=== PATIENT | female | born 1960 | race African-American/Black ===

== ENCOUNTER 2021-05-16 01:15 | Inpatient (IN) | payer MEDICAID, OTHER ==
[~2021-05-16] VITALS: Ht 162.6 cm; Wt 54.4 kg
[2021-05-16] MEDS ORDERED: METHYLPREDNISOLONE SOD SUCC 125 MG/2 ML VIAL IV STA (02:21)
[2021-05-16] MEDS ORDERED: ALBUTEROL (0.083%) 2.5MG/3ML NEB HHN STA (02:21)
[2021-05-16] MEDS ORDERED: IPRATROPIUM BROMIDE (0.02%) 0.5MG/2.5ML NEB HHN STA (02:21)
[2021-05-16] MEDS ORDERED: SODIUM CHLORIDE 0.9% 1,000 ML IV ONE (02:30)
[2021-05-16 03:01] LABS: BASOPHILS % 0.3 % (0.0-2.0); EOSINOPHILS % 0.7 % (0.0-5.0); HEMATOCRIT. 40.9 % (36.0-48.0); HEMOGLOBIN. 13.2 g/dL (12.0-16.0); LYMPHOCYTES % 15.2 % (20.0-50.0); MEAN CORPUSCULAR HEMOGLOBIN 27.2 pg (28.0-32.0); MEAN CORPUSCULAR VOLUME 84.5 fL (81.0-99.0); MEAN PLATELET VOLUME 6.9 fl (7.4-10.4); NEUTROPHILS % 75.8 % (40.0-76.0); PLATELET 278 x1000/uL (130-400); RED BLOOD CELL COUNT 4.85 mill/uL (4.2-5.4); RED CELL DISTRIBUTION WIDTH 15.8 % (11.6-14.6)
[2021-05-16 03:10] LABS: CHLORIDE 112 mEq/L (98-107)
[2021-05-16 09:30] VITALS: BP 129/87
[2021-05-16] MEDS ORDERED: ONDANSETRON HCL 4MG/2ML INJ IV PRN (10:15)
[2021-05-16 11:00] VITALS: BP 129/87
[2021-05-16 12:00] VITALS: BP 161/87
[2021-05-16] MEDS: METHYLPREDNISOLONE SOD SUCC 40 MG/ML VIAL IV SCH ×3 (12:25→22:03)
[2021-05-16] MEDS: FUROSEMIDE 40MG/4ML VIAL IVP SCH (12:25)
[2021-05-16] MEDS: IPRATROPIUM/ALBUTEROL 0.5-3(2.5)MG/3ML NEB HHN SCH ×3 (13:39→21:04)
[2021-05-16] MEDS ORDERED: ACET650T37 PO (15:08)
[2021-05-16] MEDS ORDERED: HYDR-4001 PO (15:08)
[2021-05-16 16:00] VITALS: BP 141/72
[2021-05-16] MEDS ORDERED: INFLUENZA VACCINE 05/PF 0.5 ML SYRINGE IM ONE (18:00)
[2021-05-16 18:12] LABS: *AMPHETAMINES SCREEN URINE NEGATIVE (NEGATIVE); *BARBITURATES SCREEN URINE NEGATIVE (NEGATIVE); *BENZODIAZEPINES SCREEN URINE NEGATIVE (NEGATIVE); *COCAINE SCREEN URINE NEGATIVE (NEGATIVE); METHADONE URINE SCREEN NEGATIVE (NEGATIVE); OPIATES URINE SCREEN NEGATIVE (NEGATIVE)
[2021-05-16 18:13] LABS: CANNABINOID URINE SCREEN NEGATIVE (NEGATIVE); PHENCYCLIDINE URINE SCREEN NEGATIVE (NEGATIVE)
[2021-05-16] MEDS: ACETAMINOPHEN 325MG TABLET PO PRN (18:31)
[2021-05-16 20:00] VITALS: BP 144/84
[2021-05-16] MEDS: FAMOTIDINE 20MG TABLET PO SCH (20:33)
[2021-05-17] VITALS: BP 137/63
[2021-05-17] MEDS: IPRATROPIUM/ALBUTEROL 0.5-3(2.5)MG/3ML NEB HHN SCH ×6 (01:20→20:29)
[2021-05-17 04:00] VITALS: BP 123/69
[2021-05-17] MEDS: METHYLPREDNISOLONE SOD SUCC 40 MG/ML VIAL IV SCH ×3 (06:37→20:25)
[2021-05-17 07:58] VITALS: BP 127/77
[2021-05-17] MEDS: FUROSEMIDE 40MG/4ML VIAL IVP SCH (08:46)
[2021-05-17] MEDS: ACETAMINOPHEN 325MG TABLET PO PRN (08:46)
[2021-05-17 12:00] VITALS: BP 127/57
[2021-05-17] MEDS: HYDROCODONE/ACETAMINOPHEN 5/325MG TABLET PO PRN ×2 (13:17→18:20)
[2021-05-17 16:00] VITALS: BP 122/84
[2021-05-17 16:05] LABS: BG BASE EXCESS 1.3 mmol/L (-2.0-2.0); BG CARBOXYHEMOGLOBIN 0.7 % (0.5-1.5); BG DEOXYHEMOGLOBIN 7.1 % (0.0-5.0); BG FRACTION INSPIRED OXYGEN 21; BG METHEMOGLOBIN 0.4 % (0.0-1.5); BG OXYGEN SATURATION 92.8 % (92.0-98.5); BG OXYHEMOGLOBIN 91.8 % (94.0-97.0); BG PCO2 36.5 mmHg (35.0-45.0); BG PH 7.453 (7.350-7.450); BG PO2 63.5 mmHg (75.0-100.0); BG SAMPLE SITE LEFT BRACHIAL; BG TOTAL HEMOGLOBIN 14.2 g/dL (12.0-18.0); BG VENT MODE ROOM AIR
[2021-05-17] MEDS: FLUOXETINE HCL 10 MG CAPSULE PO SCH (18:18)
[2021-05-17 20:00] VITALS: BP 128/63
[2021-05-17] MEDS: FAMOTIDINE 20MG TABLET PO SCH (20:25)
[2021-05-17] MEDS: TRAZODONE HCL 50MG TABLET PO SCH (20:25)
[2021-05-17] MEDS: QUETIAPINE FUMARATE 50MG TABLET PO SCH (20:25)
[2021-05-18] VITALS: BP 104/50
[2021-05-18] MEDS: IPRATROPIUM/ALBUTEROL 0.5-3(2.5)MG/3ML NEB HHN SCH ×6 (01:13→20:46)
[2021-05-18 04:00] VITALS: BP 108/62
[2021-05-18] MEDS: METHYLPREDNISOLONE SOD SUCC 40 MG/ML VIAL IV SCH ×3 (05:40→21:57)
[2021-05-18 08:00] VITALS: BP 120/54
[2021-05-18] MEDS: FUROSEMIDE 40MG/4ML VIAL IVP SCH (08:30)
[2021-05-18] MEDS: FLUOXETINE HCL 10 MG CAPSULE PO SCH (08:30)
[2021-05-18] MEDS: HYDROCODONE/ACETAMINOPHEN 5/325MG TABLET PO PRN ×3 (08:31→20:13)
[2021-05-18] MEDS ORDERED: ALBU18HF2 IH (13:48)
[2021-05-18] MEDS ORDERED: FURO-152 MT (13:48)
[2021-05-18] MEDS ORDERED: FLUT1DIS3 INH (13:48)
[2021-05-18] MEDS ORDERED: IPRA3AMP9 NEB (13:48)
[2021-05-18] MEDS ORDERED: P20 MT (13:48)
[2021-05-18 16:00] VITALS: BP 117/66
[2021-05-18 20:00] VITALS: BP 112/56
[2021-05-18] MEDS: FAMOTIDINE 20MG TABLET PO SCH (21:57)
[2021-05-18] MEDS: TRAZODONE HCL 50MG TABLET PO SCH (21:57)
[2021-05-18] MEDS: QUETIAPINE FUMARATE 50MG TABLET PO SCH (21:57)
[2021-05-19] VITALS: BP 106/54
[2021-05-19 04:00] VITALS: BP 121/57
[2021-05-19] MEDS: METHYLPREDNISOLONE SOD SUCC 40 MG/ML VIAL IV SCH ×3 (05:12→20:59)
[2021-05-19 08:00] VITALS: BP 107/52
[2021-05-19] MEDS: IPRATROPIUM/ALBUTEROL 0.5-3(2.5)MG/3ML NEB HHN SCH ×3 (08:56→17:19)
[2021-05-19] MEDS: FUROSEMIDE 40MG/4ML VIAL IVP SCH (09:13)
[2021-05-19] MEDS: FLUOXETINE HCL 10 MG CAPSULE PO SCH (09:14)
[2021-05-19] MEDS: HYDROCODONE/ACETAMINOPHEN 5/325MG TABLET PO PRN ×3 (09:14→18:59)
[2021-05-19 12:00] VITALS: BP 117/49
[2021-05-19] MEDS ORDERED: QUET50TA PO (13:06)
[2021-05-19] MEDS ORDERED: TRAZ-251 PO (13:06)
[2021-05-19] MEDS ORDERED: FLUO10CA28 PO (13:06)
[2021-05-19 16:00] VITALS: BP 123/53
[2021-05-19 18:23] LABS: CHLORIDE 99 mEq/L (98-107)
[2021-05-19 20:00] VITALS: BP 114/72
[2021-05-19] MEDS: QUETIAPINE FUMARATE 50MG TABLET PO SCH (20:59)
[2021-05-19] MEDS: FAMOTIDINE 20MG TABLET PO SCH (21:00)
[2021-05-19] MEDS: TRAZODONE HCL 50MG TABLET PO SCH (21:00)
[2021-05-19] MEDS: DOXEPIN HCL 25MG CAPSULE PO SCH (21:00)
[2021-05-20 01:08] VITALS: BP 101/40
[2021-05-20 04:00] VITALS: BP 99/47
[2021-05-20] MEDS: METHYLPREDNISOLONE SOD SUCC 40 MG/ML VIAL IV SCH ×3 (06:41→21:05)
[2021-05-20 08:00] VITALS: BP 113/45
[2021-05-20] MEDS: HYDROCODONE/ACETAMINOPHEN 5/325MG TABLET PO PRN ×3 (08:46→21:07)
[2021-05-20] MEDS: FUROSEMIDE 40MG/4ML VIAL IVP SCH (08:46)
[2021-05-20] MEDS: FLUOXETINE HCL 10 MG CAPSULE PO SCH (08:46)
[2021-05-20] MEDS: IPRATROPIUM/ALBUTEROL 0.5-3(2.5)MG/3ML NEB HHN SCH ×3 (09:04→16:02)
[2021-05-20 12:00] VITALS: BP 109/67
[2021-05-20 16:00] VITALS: BP 133/59
[2021-05-20 20:00] VITALS: BP 102/62
[2021-05-20] MEDS: DOXEPIN HCL 25MG CAPSULE PO SCH (21:06)
[2021-05-20] MEDS: FAMOTIDINE 20MG TABLET PO SCH (21:06)
[2021-05-20] MEDS: QUETIAPINE FUMARATE 50MG TABLET PO SCH (21:06)
[2021-05-20] MEDS: TRAZODONE HCL 50MG TABLET PO SCH (21:06)
[2021-05-21 03:50] VITALS: BP 98/59
[2021-05-21] MEDS: METHYLPREDNISOLONE SOD SUCC 40 MG/ML VIAL IV SCH ×2 (05:13→14:19)
[2021-05-21] MEDS: HYDROCODONE/ACETAMINOPHEN 5/325MG TABLET PO PRN ×3 (05:14→14:19)
[2021-05-21 08:00] VITALS: BP 110/45
[2021-05-21] MEDS: IPRATROPIUM/ALBUTEROL 0.5-3(2.5)MG/3ML NEB HHN SCH ×2 (08:53→12:51)
[2021-05-21] MEDS: FLUOXETINE HCL 10 MG CAPSULE PO SCH (09:13)
[2021-05-21] MEDS: FUROSEMIDE 40MG/4ML VIAL IVP SCH (09:13)
[2021-05-21 12:00] VITALS: BP 123/72
[2021-05-21 12:32] VITALS: BP 123/72
[2021-05-21 14:19] VITALS: BP 124/64
== END 2021-05-21 15:10 | disposition home or self-care (01) | DRG 141 ==
LOC: EDBD 01:15 → ER 01:15 → MICUSO 04:53 → EDBEDREQ 05:00 → EDBEDREQTM 05:00 → 7EST 11:56
PROVIDERS: ADMIT Internal Medicine; ATTEND Internal Medicine
DX: J45.901 Unspecified asthma with (acute) exacerbation (principal); E44.0 Moderate protein-calorie malnutrition; E87.8 Other disorders of electrolyte and fluid balance, not elsewhere classified; I50.9 Heart failure, unspecified; F25.9 Schizoaffective disorder, unspecified; F31.9 Bipolar disorder, unspecified; F17.200 Nicotine dependence, unspecified, uncomplicated; F19.90 Other psychoactive substance use, unspecified, uncomplicated; R74.01 Elevation of levels of liver transaminase levels; Z20.822 Contact with and (suspected) exposure to COVID-19; F41.1 Generalized anxiety disorder; F43.10 Post-traumatic stress disorder, unspecified; Z59.00 Homelessness unspecified; Z82.49 Family history of ischemic heart disease and other diseases of the circulatory system; Z87.01 Personal history of pneumonia (recurrent); Z68.20 Body mass index [BMI] 20.0-20.9, adult; Z71.6 Tobacco abuse counseling
CPT/HCPCS: 36415; 36600; 71045; 80048; 80053; 80305; 82375; 82805; 83605; 83880; 84443; 84484; 85025; 87426; 90686; 93005; 93306; 94618; 94640; 99291; C1893; J1940; J2920; J2930; J7030; U0003; U0005

== ENCOUNTER 2021-09-08 17:48 | Emergency (ER) | payer MEDICAID, OTHER ==
[~2021-09-08] VITALS: Ht 162.6 cm; Wt 61.0 kg
[~2021-09-08 17:48] MED LIST: ACET650T37 PO; ALBU18HF2 IH; FLUO10CA28 PO; FLUT1DIS3 INH; FURO-152 MT; HYDR-4001 PO; IPRA3AMP9 NEB; P20 MT; QUET50TA PO; TRAZ-251 PO
[2021-09-08 20:15] LABS: CHLORIDE 107 mEq/L (98-107)
[2021-09-08 20:21] LABS: BASOPHILS % 0.9 % (0.0-2.0); EOSINOPHILS % 1.6 % (0.0-5.0); HEMOGLOBIN. 12.1 g/dL (12.0-16.0); LYMPHOCYTES % 18.6 % (20.0-50.0); MEAN CORPUSCULAR HEMOGLOBIN 24.4 pg (28.0-32.0); MEAN CORPUSCULAR VOLUME 76.7 fL (81.0-99.0); MEAN PLATELET VOLUME 7.2 fl (7.4-10.4); MONOCYTES % 11.2 % (2.0-8.0); NEUTROPHILS % 67.7 % (40.0-76.0); PLATELET 354 x1000/uL (130-400); RED BLOOD CELL COUNT 4.95 mill/uL (4.2-5.4); RED CELL DISTRIBUTION WIDTH 18.1 % (11.6-14.6)
[2021-09-08] MEDS ORDERED: FURO-151 PO (21:46)
[2021-09-08 22:00] VITALS: BP 120/72
[2021-09-08] MEDS ORDERED: FUROSEMIDE 40MG TABLET PO ONE (22:00)
[2021-09-09] MEDS ORDERED: POTA20TA82 MT (13:18)
[2021-09-09] MEDS ORDERED: FURO-151 MT (13:18)
== END 2021-09-08 22:18 | disposition home or self-care (01) ==
LOC: ER 17:48
DX: I50.9 Heart failure, unspecified (principal); Z20.822 Contact with and (suspected) exposure to COVID-19; R00.0 Tachycardia, unspecified; R74.8 Abnormal levels of other serum enzymes; J44.9 Chronic obstructive pulmonary disease, unspecified; J45.909 Unspecified asthma, uncomplicated; F20.9 Schizophrenia, unspecified; Z87.01 Personal history of pneumonia (recurrent)
CPT/HCPCS: 36415; 71045; 80048; 83880; 84484; 85025; 87426; 93005; 99285

== ENCOUNTER 2021-09-09 10:50 | Emergency (ER) | payer MEDICAID, OTHER ==
[~2021-09-09] VITALS: Ht 165.1 cm; Wt 63.0 kg
[~2021-09-09 10:50] MED LIST changes: +FURO-151 PO
[2021-09-09 11:28] LABS: BASOPHILS % 1.3 % (0.0-2.0); EOSINOPHILS % 0.7 % (0.0-5.0); HEMATOCRIT. 38.8 % (36.0-48.0); HEMOGLOBIN. 12.9 g/dL (12.0-16.0); LYMPHOCYTES % 18.5 % (20.0-50.0); MEAN CORPUSCULAR HEMOGLOBIN 25.2 pg (28.0-32.0); MEAN PLATELET VOLUME 6.8 fl (7.4-10.4); MONOCYTES % 9.2 % (2.0-8.0); NEUTROPHILS % 70.3 % (40.0-76.0); PLATELET 361 x1000/uL (130-400); RED BLOOD CELL COUNT 5.11 mill/uL (4.2-5.4); RED CELL DISTRIBUTION WIDTH 18.3 % (11.6-14.6)
[2021-09-09 11:35] LABS: CHLORIDE 105 mEq/L (98-107)
[2021-09-09] MEDS ORDERED: FUROSEMIDE 100MG/10ML VIAL IVP ONE (11:45)
[2021-09-09] MEDS ORDERED: ALBUTEROL (0.083%) 2.5MG/3ML NEB HHN ONE (11:45)
[2021-09-09] MEDS ORDERED: POTA20TA82 MT (13:18)
[2021-09-09] MEDS ORDERED: FURO-151 MT (13:18)
[2021-09-09] MEDS ORDERED: ACETAMINOPHEN 325MG TABLET PO ONE (13:30)
[2021-09-09 13:41] VITALS: BP 122/81
== END 2021-09-09 13:46 | disposition home or self-care (01) ==
LOC: ER 10:50
DX: I50.9 Heart failure, unspecified (principal); J44.9 Chronic obstructive pulmonary disease, unspecified; Z98.890 Other specified postprocedural states; F17.290 Nicotine dependence, other tobacco product, uncomplicated; Z79.899 Other long term (current) drug therapy
CPT/HCPCS: 36415; 71045; 80053; 83880; 84484; 85025; 93005; 94640; 96374; 99285; J1940; Z7610

== ENCOUNTER 2021-10-03 16:59 | Emergency (ER) | payer MEDICAID ==
[~2021-10-03] VITALS: Ht 170.2 cm; Wt 73.0 kg
[~2021-10-03 16:59] MED LIST changes: +FURO-151 MT; +POTA20TA82 MT
[2021-10-03] MEDS ORDERED: ALBUTEROL (0.083%) 2.5MG/3ML NEB HHN STA (17:10)
[2021-10-03] MEDS ORDERED: MAGNESIUM 2 G PREMIX 50 ML IV STA (17:10)
[2021-10-03] MEDS ORDERED: IPRATROPIUM BROMIDE (0.02%) 0.5MG/2.5ML NEB HHN STA (17:10)
[2021-10-03] MEDS ORDERED: METHYLPREDNISOLONE SOD SUCC 125 MG/2 ML VIAL IV STA (17:10)
[2021-10-03] MEDS ORDERED: FUROSEMIDE 20MG/2ML VIAL IVP ONE (17:15)
[2021-10-03 17:36] LABS: BASOPHILS % 1.6 % (0.0-2.0); EOSINOPHILS % 1.3 % (0.0-5.0); HEMATOCRIT. 38.1 % (36.0-48.0); HEMOGLOBIN. 12.1 g/dL (12.0-16.0); LYMPHOCYTES % 30.6 % (20.0-50.0); MEAN CORPUSCULAR HEMOGLOBIN 23.9 pg (28.0-32.0); MEAN CORPUSCULAR VOLUME 75.1 fL (81.0-99.0); MEAN PLATELET VOLUME 7.4 fl (7.4-10.4); MONOCYTES % 14.1 % (2.0-8.0); NEUTROPHILS % 52.4 % (40.0-76.0); PLATELET 302 x1000/uL (130-400); RED BLOOD CELL COUNT 5.08 mill/uL (4.2-5.4); RED CELL DISTRIBUTION WIDTH 18.6 % (11.6-14.6)
[2021-10-03 17:50] LABS: CHLORIDE 110 mEq/L (98-107)
[2021-10-03] MEDS ORDERED: ACETAMINOPHEN 325MG TABLET PO ONE (20:00)
[2021-10-03] MEDS ORDERED: POTASSIUM CHLORIDE 20MEQ TABLET SR PO ONE (20:00)
[2021-10-03 21:46] VITALS: BP 128/66
== END 2021-10-03 21:45 | disposition home or self-care (01) ==
LOC: ER 16:59
DX: I11.0 Hypertensive heart disease with heart failure (principal); I50.9 Heart failure, unspecified; J44.9 Chronic obstructive pulmonary disease, unspecified; E87.8 Other disorders of electrolyte and fluid balance, not elsewhere classified; J45.909 Unspecified asthma, uncomplicated
CPT/HCPCS: 36415; 71045; 80053; 83880; 84484; 85025; 93005; 96365; 96375; 99291; J1940; J2930; J3475

== ENCOUNTER 2021-10-07 07:06 | Inpatient (IN) | payer MEDICAID, OTHER ==
[~2021-10-07] VITALS: Ht 165.1 cm; Wt 61.7 kg
[2021-10-07] MEDS ORDERED: FUROSEMIDE 40MG/4ML VIAL IV ONE (07:30)
[2021-10-07] MEDS ORDERED: ASPIRIN 81MG TABLET PO ONE (07:30)
[2021-10-07 08:21] LABS: EOSINOPHILS % 1.9 % (0.0-5.0); HEMATOCRIT. 38.4 % (36.0-48.0); HEMOGLOBIN. 12.3 g/dL (12.0-16.0); LYMPHOCYTES % 15.1 % (20.0-50.0); MEAN PLATELET VOLUME 7.5 fl (7.4-10.4); MONOCYTES % 10.6 % (2.0-8.0); NEUTROPHILS % 71.4 % (40.0-76.0); PLATELET 290 x1000/uL (130-400); RED BLOOD CELL COUNT 5.11 mill/uL (4.2-5.4); RED CELL DISTRIBUTION WIDTH 18.4 % (11.6-14.6)
[2021-10-07 08:28] LABS: CHLORIDE 108 mEq/L (98-107)
[2021-10-07 08:33] LABS: ETHANOL BLOOD < 10 mg/dL
[2021-10-07 11:35] LABS: CANNABINOID URINE SCREEN NEGATIVE (NEGATIVE); METHADONE URINE SCREEN NEGATIVE (NEGATIVE); OPIATES URINE SCREEN NEGATIVE (NEGATIVE)
[2021-10-07 11:36] LABS: *BARBITURATES SCREEN URINE NEGATIVE (NEGATIVE); *COCAINE SCREEN URINE PRESUMTIVE POSITIVE (NEGATIVE); PHENCYCLIDINE URINE SCREEN NEGATIVE (NEGATIVE)
[2021-10-07 11:37] LABS: *AMPHETAMINES SCREEN URINE NEGATIVE (NEGATIVE)
[2021-10-07 11:44] LABS: *BENZODIAZEPINES SCREEN URINE NEGATIVE (NEGATIVE)
[2021-10-07] MEDS ORDERED: ACETAMINOPHEN 325MG TABLET PO PRN (20:15)
[2021-10-07] MEDS ORDERED: CLONIDINE 0.1MG TABLET PO PRN (20:15)
[2021-10-07] MEDS ORDERED: DOCUSATE SODIUM 100MG CAPSULE PO PRN (20:15)
[2021-10-07] MEDS ORDERED: MAGNESIUM/ALUMINUM HYDROXIDE/SIMETHICONE 30ML UDC PO PRN (20:15)
[2021-10-07] MEDS ORDERED: CEFTRIAXONE 1 G PREMIX 50 ML IV SCH (21:00)
[2021-10-08] MEDS: FUROSEMIDE 40MG/4ML VIAL IV SCH ×3 (00:57→16:42)
[2021-10-08] MEDS: ENOXAPARIN 40MG/0.4ML SYR SUBCUT SCH ×2 (00:57→23:00)
[2021-10-08] MEDS: CEFTRIAXONE 1,000 MG in DEXTROSE 5% WATER 50 ML IV SCH (00:58)
[2021-10-08 04:37] LABS: BASOPHILS % 0.6 % (0.0-2.0); EOSINOPHILS % 2.4 % (0.0-5.0); HEMATOCRIT. 37.5 % (36.0-48.0); HEMOGLOBIN. 12.2 g/dL (12.0-16.0); LYMPHOCYTES % 20.5 % (20.0-50.0); MEAN CORPUSCULAR VOLUME 74.1 fL (81.0-99.0); MEAN PLATELET VOLUME 7.4 fl (7.4-10.4); MONOCYTES % 9.8 % (2.0-8.0); NEUTROPHILS % 66.7 % (40.0-76.0); PLATELET 311 x1000/uL (130-400); RED BLOOD CELL COUNT 5.07 mill/uL (4.2-5.4); RED CELL DISTRIBUTION WIDTH 18.9 % (11.6-14.6)
[2021-10-08 04:50] LABS: CHLORIDE 107 mEq/L (98-107)
[2021-10-08 04:57] LABS: PHOSPHORUS 3.7 mg/dL (2.5-4.9)
[2021-10-08] MEDS: HYDROCODONE/ACETAMINOPHEN 5/325MG TABLET PO PRN ×4 (04:57→22:59)
[2021-10-08 04:58] LABS: LDL CHOLESTEROL 52 mg/dL (5-100)
[2021-10-08 04:59] LABS: HDL CHOLESTEROL 49 mg/dL (40-59); T4 FREE 1.42 ng/dL (0.76-1.46)
[2021-10-08 12:00] VITALS: BP 101/74
[2021-10-08] MEDS: OMEPRAZOLE 20MG CAPSULE EXTENDED RELEASE PO SCH (12:49)
[2021-10-08] MEDS ORDERED: NALOXONE HCL 0.4MG/ML VIAL IV PRN (15:00)
[2021-10-08 16:00] VITALS: BP 117/53
[2021-10-08 16:58] LABS: CREATINE KINASE MB FRACTION 2.1 ng/mL (0.5-3.6)
[2021-10-08 16:59] VITALS: BP 101/74
[2021-10-08 20:00] VITALS: BP 116/70
[2021-10-08] MEDS ORDERED: INFLUENZA VACCINE 05/PF 0.5 ML SYRINGE IM ONE (20:00)
[2021-10-08] MEDS ORDERED: MAGNESIUM 2 G PREMIX 50 ML IV NR (20:00)
[2021-10-08] MEDS: IPRATROPIUM/ALBUTEROL 0.5-3(2.5)MG/3ML NEB HHN SCH (22:23)
[2021-10-09] VITALS: BP 94/71
[2021-10-09] MEDS: CEFTRIAXONE 1,000 MG in DEXTROSE 5% WATER 50 ML IV SCH (01:00)
[2021-10-09] MEDS: IPRATROPIUM/ALBUTEROL 0.5-3(2.5)MG/3ML NEB HHN SCH ×4 (01:06→21:50)
[2021-10-09] MEDS ORDERED: FLUOXETINE HCL 10 MG CAPSULE PO SCH (05:45)
[2021-10-09 06:45] LABS: HEMATOCRIT. 39.2 % (36.0-48.0); HEMOGLOBIN. 12.6 g/dL (12.0-16.0); MEAN CORPUSCULAR HEMOGLOBIN 23.7 pg (28.0-32.0); MEAN CORPUSCULAR VOLUME 73.7 fL (81.0-99.0); MEAN PLATELET VOLUME 7.5 fl (7.4-10.4); PLATELET 321 x1000/uL (130-400); RED BLOOD CELL COUNT 5.32 mill/uL (4.2-5.4); RED CELL DISTRIBUTION WIDTH 18.6 % (11.6-14.6)
[2021-10-09 06:59] LABS: CHLORIDE 101 mEq/L (98-107)
[2021-10-09] MEDS: OMEPRAZOLE 20MG CAPSULE EXTENDED RELEASE PO SCH (07:55)
[2021-10-09 08:00] VITALS: BP 100/68
[2021-10-09] MEDS: FUROSEMIDE 40MG/4ML VIAL IV SCH ×2 (09:43→17:25)
[2021-10-09] MEDS: QUETIAPINE FUMARATE 50MG TABLET PO SCH ×2 (09:43→21:42)
[2021-10-09 10:42] LABS: PLATELET ESTIMATE NORMAL
[2021-10-09 12:00] VITALS: BP 104/70
[2021-10-09] MEDS: HYDROCODONE/ACETAMINOPHEN 5/325MG TABLET PO PRN ×3 (13:36→21:41)
[2021-10-09 16:00] VITALS: BP 124/67
[2021-10-09 20:00] VITALS: BP 105/54
[2021-10-09] MEDS ORDERED: TRAZODONE HCL 50MG TABLET PO SCH (21:00)
[2021-10-09] MEDS: ENOXAPARIN 40MG/0.4ML SYR SUBCUT SCH (21:42)
[2021-10-10] VITALS (7 sets, daily range): BP systolic 94–104; BP diastolic 43–61
[2021-10-10] MEDS: CEFTRIAXONE 1,000 MG in DEXTROSE 5% WATER 50 ML IV SCH (00:14)
[2021-10-10] MEDS: IPRATROPIUM/ALBUTEROL 0.5-3(2.5)MG/3ML NEB HHN SCH ×3 (02:30→13:05)
[2021-10-10] MEDS: OMEPRAZOLE 20MG CAPSULE EXTENDED RELEASE PO SCH (06:21)
[2021-10-10] MEDS: HYDROCODONE/ACETAMINOPHEN 5/325MG TABLET PO PRN ×2 (09:43→16:01)
[2021-10-10] MEDS ORDERED: MAGNESIUM 2 G PREMIX 50 ML IV SCH (10:45)
[2021-10-10] MEDS: QUETIAPINE FUMARATE 50MG TABLET PO SCH (10:57)
[2021-10-11] MEDS ORDERED: FAMOTIDINE 20MG TABLET PO SCH (07:20)
[2021-10-11] MEDS ORDERED: FUROSEMIDE 40MG TABLET PO SCH (09:00)
== END 2021-10-10 19:45 | disposition home health service (06) | DRG 816 ==
LOC: ER 07:16 → MICUSO 10:26 → 6WST 10-08 10:54
PROVIDERS: ADMIT Internal Medicine; ATTEND Internal Medicine
DX: T59.91XA Toxic effect of unspecified gases, fumes and vapors, accidental (unintentional), initial encounter (principal); J96.90 Respiratory failure, unspecified, unspecified whether with hypoxia or hypercapnia; I50.43 Acute on chronic combined systolic (congestive) and diastolic (congestive) heart failure; J68.0 Bronchitis and pneumonitis due to chemicals, gases, fumes and vapors; I42.0 Dilated cardiomyopathy; I27.20 Pulmonary hypertension, unspecified; I11.0 Hypertensive heart disease with heart failure; F41.9 Anxiety disorder, unspecified; F31.9 Bipolar disorder, unspecified; F20.9 Schizophrenia, unspecified; F14.10 Cocaine abuse, uncomplicated; I35.1 Nonrheumatic aortic (valve) insufficiency; Z82.49 Family history of ischemic heart disease and other diseases of the circulatory system; Z72.0 Tobacco use; Y92.89 Other specified places as the place of occurrence of the external cause; I95.2 Hypotension due to drugs
CPT/HCPCS: 36415; 71045; 80048; 80053; 80061; 80076; 80305; 80320; 82553; 83735; 83880; 84100; 84439; 84443; 84484; 85025; 87426; 90686; 93005; 93306; 93970; 94640; 99285; J0696; J1650; J1940; J3475; J7060; G0480

== ENCOUNTER 2022-03-05 08:20 | Emergency (ER) | payer MEDICAID ==
[~2022-03-05] VITALS: Ht 162.6 cm; Wt 59.0 kg
[~2022-03-05 08:20] MED LIST changes: +ACET-3163 PO; -ACET650T37 PO; -FURO-151 MT; -FURO-152 MT; -P20 MT; +POTA-205 MT; -POTA20TA82 MT
[2022-03-05] MEDS ORDERED: HYDR99LO MT (08:54)
[2022-03-05] MEDS ORDERED: DIPH103G TP (09:46)
[2022-03-05 09:48] VITALS: BP 122/58
== END 2022-03-05 09:54 | disposition home or self-care (01) ==
LOC: ER 08:28
DX: L50.9 Urticaria, unspecified (principal); E11.9 Type 2 diabetes mellitus without complications; J44.1 Chronic obstructive pulmonary disease with (acute) exacerbation; I11.0 Hypertensive heart disease with heart failure; I50.9 Heart failure, unspecified; Z79.899 Other long term (current) drug therapy
CPT/HCPCS: 93005; 99283

== ENCOUNTER 2022-03-11 00:08 | Inpatient (IN) | payer MEDICAID, OTHER ==
[~2022-03-11] VITALS: Ht 157.5 cm; Wt 26.3 kg
[~2022-03-11 00:08] MED LIST changes: +DIPH103G TP; +HYDR99LO MT
[2022-03-11 01:56] LABS: HEMATOCRIT. 39.9 % (36.0-48.0); MEAN CORPUSCULAR HEMOGLOBIN 25.5 pg (28.0-32.0); MEAN CORPUSCULAR VOLUME 78.2 fL (81.0-99.0); MEAN PLATELET VOLUME 6.5 fl (7.4-10.4); PLATELET 293 x1000/uL (130-400); RED CELL DISTRIBUTION WIDTH 24.8 % (11.6-14.6)
[2022-03-11] MEDS ORDERED: ASPIRIN 81MG EC TABLET PO ONE (02:00)
[2022-03-11] MEDS ORDERED: NITROGLYCERIN 0.4MG TABLET SL SL ONE (02:00)
[2022-03-11 02:01] LABS: CHLORIDE 106 mEq/L (98-107)
[2022-03-11 03:23] LABS: PLATELET ESTIMATE NORMAL
[2022-03-11] MEDS ORDERED: FAMOTIDINE 20MG/2ML VIAL IV ONE (04:00)
[2022-03-11] MEDS: FUROSEMIDE 40MG/4ML VIAL IVP SCH ×2 (07:57→19:23)
[2022-03-11] MEDS: IPRATROPIUM/ALBUTEROL 0.5-3(2.5)MG/3ML NEB HHN SCH ×3 (08:25→22:00)
[2022-03-11] MEDS ORDERED: ONDANSETRON HCL 4MG/2ML INJ IV PRN (10:30)
[2022-03-11 12:25] VITALS: BP 126/90
[2022-03-11 12:29] VITALS: BP 126/90
[2022-03-11] MEDS: NYSTATIN/TRIAMCIN OINT 15GM TOP SCH ×2 (14:00→19:25)
[2022-03-11] MEDS ORDERED: HYDROXYZINE 25MG TABLET PO PRN (15:00)
[2022-03-11 16:00] VITALS: BP 128/89
[2022-03-11] MEDS: CARVEDILOL 12.5MG TABLET PO SCH (21:00)
[2022-03-11] MEDS: FLUOCINONIDE 0.05% OINT 15GM TOP SCH ×2 (21:00→22:41)
[2022-03-12] MEDS: IPRATROPIUM/ALBUTEROL 0.5-3(2.5)MG/3ML NEB HHN SCH ×4 (01:02→11:58)
[2022-03-12 04:00] VITALS: BP 115/66
[2022-03-12] MEDS: FUROSEMIDE 40MG/4ML VIAL IVP SCH (06:32)
[2022-03-12] MEDS ORDERED: DIPHENHYDRAMINE 50MG CAPSULE PO PRN (08:15)
[2022-03-12] MEDS ORDERED: NALOXONE HCL 0.4MG/ML VIAL IV PRN (08:15)
[2022-03-12] MEDS ORDERED: HYDROCODONE/ACETAMINOPHEN 10/325MG TABLET PO PRN (08:15)
[2022-03-12 08:31] VITALS: BP 117/71
[2022-03-12] MEDS: FLUOCINONIDE 0.05% OINT 15GM TOP SCH (08:31)
[2022-03-12] MEDS: NYSTATIN/TRIAMCIN OINT 15GM TOP SCH ×2 (08:31→13:46)
[2022-03-12] MEDS: CARVEDILOL 12.5MG TABLET PO SCH (08:33)
[2022-03-12] MEDS ORDERED: ASPIRIN 81MG TABLET PO SCH (09:00)
[2022-03-12] MEDS ORDERED: [UNRECOGNIZED DRUG - CODE] TOP (11:44)
[2022-03-12] MEDS ORDERED: FURO-151 PO (11:44)
[2022-03-12] MEDS ORDERED: CARV6.2548 MT (11:44)
[2022-03-12 12:00] VITALS: BP 90/53
[2022-03-12 13:02] VITALS: BP 90/63
[2022-03-12] MEDS ORDERED: CARVEDILOL 6.25 MG TABLET PO SCH (21:00)
[2022-03-13] MEDS ORDERED: FUROSEMIDE 40MG TABLET PO SCH (09:00)
== END 2022-03-12 15:55 | disposition home or self-care (01) | DRG 194 ==
LOC: ER 00:08 → 6WST 05:07 → EDBEDREQTM 05:09 → EDBEDREQ 05:09 → ENRESERV 09:50
PROVIDERS: ADMIT Internal Medicine; ATTEND Internal Medicine
DX: I11.0 Hypertensive heart disease with heart failure (principal); I27.20 Pulmonary hypertension, unspecified; I42.9 Cardiomyopathy, unspecified; I50.23 Acute on chronic systolic (congestive) heart failure; E11.9 Type 2 diabetes mellitus without complications; J44.9 Chronic obstructive pulmonary disease, unspecified; F17.210 Nicotine dependence, cigarettes, uncomplicated; F14.90 Cocaine use, unspecified, uncomplicated; Z79.899 Other long term (current) drug therapy; Z91.19 Patient's noncompliance with other medical treatment and regimen; R07.89 Other chest pain
CPT/HCPCS: 36415; 71045; 80053; 83880; 84484; 85025; 93005; 93306; 94640; 99285; J1940; J3490

== ENCOUNTER 2022-03-13 10:34 | Inpatient (IN) | payer OTHER ==
[~2022-03-13] VITALS: Ht 160 cm; Wt 68.1 kg
[~2022-03-13 10:34] MED LIST changes: +CARV6.2548 MT; -DIPH103G TP; -HYDR99LO MT; +[UNRECOGNIZED DRUG - CODE] TOP
[2022-03-13] MEDS ORDERED: ALBUTEROL (0.083%) 2.5MG/3ML NEB HHN STA (10:38)
[2022-03-13] MEDS ORDERED: METHYLPREDNISOLONE SOD SUCC 125 MG/2 ML VIAL IV STA (10:38)
[2022-03-13] MEDS ORDERED: IPRATROPIUM BROMIDE (0.02%) 0.5MG/2.5ML NEB HHN STA (10:38)
[2022-03-13] MEDS ORDERED: ONDANSETRON HCL 4MG/2ML INJ IV STA (10:57)
[2022-03-13 11:30] LABS: BASOPHILS % 0.5 % (0.0-2.0); EOSINOPHILS % 0.2 % (0.0-5.0); HEMATOCRIT. 41.5 % (36.0-48.0); HEMOGLOBIN. 13.3 g/dL (12.0-16.0); LYMPHOCYTES % 15.5 % (20.0-50.0); MEAN CORPUSCULAR HEMOGLOBIN 25.3 pg (28.0-32.0); MEAN CORPUSCULAR VOLUME 79.1 fL (81.0-99.0); MEAN PLATELET VOLUME 6.9 fl (7.4-10.4); MONOCYTES % 14.3 % (2.0-8.0); NEUTROPHILS % 69.5 % (40.0-76.0); PLATELET 277 x1000/uL (130-400); RED BLOOD CELL COUNT 5.24 mill/uL (4.2-5.4); RED CELL DISTRIBUTION WIDTH 24.4 % (11.6-14.6)
[2022-03-13 11:40] LABS: CHLORIDE 104 mEq/L (98-107)
[2022-03-13 12:57] LABS: PLATELET ESTIMATE NORMAL
[2022-03-13] MEDS ORDERED: ALBUTEROL (0.083%) 2.5MG/3ML NEB HHN PRN (19:30)
[2022-03-13 22:55] VITALS: BP 122/77
[2022-03-14] VITALS: BP 122/77
[2022-03-14] MEDS ORDERED: HYDROCODONE/ACETAMINOPHEN 10/325MG TABLET PO PRN (01:00)
[2022-03-14] MEDS ORDERED: ACETAMINOPHEN 325MG TABLET PO PRN (01:00)
[2022-03-14] MEDS ORDERED: FLUTICASONE/VILANTEROL 200-25 BLST.W.DEV ORI SCH (04:00)
[2022-03-14] MEDS ORDERED: BUDESONIDE 0.5MG/2ML NEB HHN SCH (06:00)
[2022-03-14] MEDS ORDERED: ALBUTEROL (0.083%) 2.5MG/3ML NEB HHN SCH (06:00)
[2022-03-14] MEDS ORDERED: ENOXAPARIN 40MG/0.4ML SYR SUBCUT SCH (09:00)
[2022-03-14] MEDS ORDERED: FUROSEMIDE 40MG/4ML VIAL IVP SCH (09:00)
[2022-03-14] MEDS ORDERED: CARVEDILOL 3.125 MG TABLET PO SCH (09:00)
[2022-03-14] MEDS ORDERED: ASPIRIN 81MG TABLET PO SCH (09:00)
[2022-03-14 11:40] LABS: BASOPHILS % 0.2 % (0.0-2.0); HEMATOCRIT. 39.3 % (36.0-48.0); HEMOGLOBIN. 12.8 g/dL (12.0-16.0); LYMPHOCYTES % 12.3 % (20.0-50.0); MEAN CORPUSCULAR HEMOGLOBIN 25.4 pg (28.0-32.0); MEAN CORPUSCULAR VOLUME 78.2 fL (81.0-99.0); MEAN PLATELET VOLUME 7.5 fl (7.4-10.4); MONOCYTES % 10.2 % (2.0-8.0); NEUTROPHILS % 77.3 % (40.0-76.0); PLATELET 297 x1000/uL (130-400); RED BLOOD CELL COUNT 5.03 mill/uL (4.2-5.4)
[2022-03-14] MEDS: IPRATROPIUM/ALBUTEROL 0.5-3(2.5)MG/3ML NEB HHN SCH ×2 (12:21→16:15)
[2022-03-14 12:30] VITALS: BP 120/75
[2022-03-14 12:31] LABS: CHLORIDE 100 mEq/L (98-107)
[2022-03-14] MEDS ORDERED: DIPHENHYDRAMINE 25MG CAPSULE PO PRN (14:45)
[2022-03-14 16:18] VITALS: BP 112/69
[2022-03-14 17:10] VITALS: BP 112/69
== END 2022-03-14 19:03 | disposition home or self-care (01) | DRG 194 ==
LOC: ER 10:34 → MICUSO 13:15 → EDBEDREQTM 13:16 → EDBEDREQ 13:16 → 6WST 23:00
PROVIDERS: ADMIT Internal Medicine; ATTEND Internal Medicine
DX: I11.0 Hypertensive heart disease with heart failure (principal); Z99.81 Dependence on supplemental oxygen; E11.9 Type 2 diabetes mellitus without complications; R06.02 Shortness of breath; J44.9 Chronic obstructive pulmonary disease, unspecified; I50.23 Acute on chronic systolic (congestive) heart failure; F14.90 Cocaine use, unspecified, uncomplicated
CPT/HCPCS: 36415; 71045; 80053; 83880; 84484; 85025; 93005; 94640; 94644; 99285; J1650; J1940; J2405; J2930; J7626; Q0163

== ENCOUNTER 2022-03-21 16:33 | Emergency (ER) | payer OTHER ==
[~2022-03-21] VITALS: Ht 157.5 cm; Wt 60.0 kg
[2022-03-21] MEDS ORDERED: MAGNESIUM/ALUMINUM HYDROXIDE/SIMETHICONE 30ML UDC PO STA ×2 (18:21)
[2022-03-21] MEDS ORDERED: ONDANSETRON 4MG ODT PO STA (18:21)
[2022-03-21] MEDS ORDERED: VISCOUS LIDOCAINE 2% 15 ML UDC PO STA (18:21)
[2022-03-21 19:31] LABS: BASOPHILS % 0.5 % (0.0-2.0); EOSINOPHILS % 1.6 % (0.0-5.0); HEMATOCRIT. 42.6 % (36.0-48.0); HEMOGLOBIN. 13.5 g/dL (12.0-16.0); LYMPHOCYTES % 16.7 % (20.0-50.0); MEAN CORPUSCULAR HEMOGLOBIN 24.9 pg (28.0-32.0); MEAN CORPUSCULAR VOLUME 78.2 fL (81.0-99.0); MEAN PLATELET VOLUME 6.5 fl (7.4-10.4); MONOCYTES % 10.4 % (2.0-8.0); NEUTROPHILS % 70.8 % (40.0-76.0); PLATELET 293 x1000/uL (130-400); RED BLOOD CELL COUNT 5.45 mill/uL (4.2-5.4); RED CELL DISTRIBUTION WIDTH 23.1 % (11.6-14.6)
[2022-03-21 19:40] LABS: CHLORIDE 106 mEq/L (98-107)
[2022-03-21 19:43] LABS: INR 1.1
[2022-03-21 20:23] LABS: PLATELET ESTIMATE NORMAL
[2022-03-21] MEDS ORDERED: ACETAMINOPHEN 325MG TABLET PO ONE (21:15)
[2022-03-21 23:12] VITALS: BP 114/78
== END 2022-03-21 23:13 | disposition home or self-care (01) ==
LOC: ER 16:33
DX: K31.84 Gastroparesis (principal)
CPT/HCPCS: 36415; 74176; 80053; 83690; 85025; 85610; 93005; 99285; Q0162

== ENCOUNTER 2022-03-22 06:06 | Inpatient (IN) | payer OTHER ==
[~2022-03-22] VITALS: Ht 170.2 cm; Wt 71.7 kg
[2022-03-22 06:38] LABS: EOSINOPHILS % 1.5 % (0.0-5.0); HEMATOCRIT. 43.4 % (36.0-48.0); LYMPHOCYTES % 16.8 % (20.0-50.0); MEAN CORPUSCULAR HEMOGLOBIN 25.3 pg (28.0-32.0); MEAN CORPUSCULAR VOLUME 78.6 fL (81.0-99.0); MEAN PLATELET VOLUME 6.8 fl (7.4-10.4); MONOCYTES % 12.3 % (2.0-8.0); NEUTROPHILS % 69.1 % (40.0-76.0); PLATELET 276 x1000/uL (130-400); RED BLOOD CELL COUNT 5.52 mill/uL (4.2-5.4); RED CELL DISTRIBUTION WIDTH 22.7 % (11.6-14.6)
[2022-03-22 06:42] LABS: CHLORIDE 103 mEq/L (98-107)
[2022-03-22 07:13] LABS: BASOPHILS % 0.3 % (0.0-2.0)
[2022-03-22] MEDS ORDERED: KETOROLAC 30MG/ML VIAL IV ONE (07:15)
[2022-03-22 12:00] VITALS: BP 108/63
[2022-03-22] MEDS ORDERED: ACETAMINOPHEN 325MG TABLET PO PRN (12:15)
[2022-03-22] MEDS ORDERED: ONDANSETRON HCL 4MG/2ML INJ IV PRN (12:15)
[2022-03-22] MEDS: FUROSEMIDE 40MG/4ML VIAL IVP SCH ×3 (12:58→18:35)
[2022-03-22 16:00] VITALS: BP 107/55
[2022-03-22] MEDS: KETOROLAC 15MG/ML VIAL IV PRN (18:38)
[2022-03-22 20:00] VITALS: BP 100/81
[2022-03-22] MEDS ORDERED: NALOXONE HCL 0.4MG/ML VIAL IV PRN (20:00)
[2022-03-22] MEDS: HYDROCODONE/ACETAMINOPHEN 10/325MG TABLET PO PRN (20:20)
[2022-03-23] VITALS: BP 109/66
[2022-03-23] MEDS: HYDROCODONE/ACETAMINOPHEN 10/325MG TABLET PO PRN ×3 (00:37→21:31)
[2022-03-23 04:00] VITALS: BP 100/77
[2022-03-23 08:00] VITALS: BP 111/58
[2022-03-23] MEDS ORDERED: IPRATROPIUM/ALBUTEROL 0.5-3(2.5)MG/3ML NEB HHN PRN (08:45)
[2022-03-23] MEDS: CARVEDILOL 3.125 MG TABLET PO SCH ×2 (09:00→20:35)
[2022-03-23 11:41] VITALS: BP 108/77
[2022-03-23 15:38] VITALS: BP 106/64
[2022-03-23] MEDS: FUROSEMIDE 40MG/4ML VIAL IVP SCH (16:05)
[2022-03-23 17:42] LABS: BG BASE EXCESS 4.1 mmol/L (-2.0-2.0); BG CARBOXYHEMOGLOBIN 0.5 % (0.5-1.5); BG DEOXYHEMOGLOBIN 4.2 % (0.0-5.0); BG FRACTION INSPIRED OXYGEN 21; BG HCO3 ACT 28.4 mmol/L (22.0-26.0); BG METHEMOGLOBIN 0.3 % (0.0-1.5); BG OXYGEN SATURATION 95.8 % (92.0-98.5); BG PCO2 41.6 mmHg (35.0-45.0); BG PH 7.452 (7.350-7.450); BG PO2 81.9 mmHg (75.0-100.0); BG SAMPLE SITE RIGHT BRACHIAL; BG TOTAL HEMOGLOBIN 13.7 g/dL (12.0-18.0); BG VENT MODE ROOM AIR
[2022-03-23 20:00] VITALS: BP 101/66
[2022-03-23] MEDS: KETOROLAC 15MG/ML VIAL IV PRN (20:35)
[2022-03-24] VITALS: BP 100/77
[2022-03-24] MEDS ORDERED: DIPHENHYDRAMINE 25MG CAPSULE PO PRN (00:45)
[2022-03-24 04:00] VITALS: BP 97/48
[2022-03-24] MEDS: HYDROCODONE/ACETAMINOPHEN 10/325MG TABLET PO PRN (04:07)
[2022-03-24] MEDS: KETOROLAC 15MG/ML VIAL IV PRN (06:02)
[2022-03-24 08:00] VITALS: BP 125/53
[2022-03-24] MEDS: FUROSEMIDE 40MG/4ML VIAL IVP SCH (08:25)
[2022-03-24] MEDS: CARVEDILOL 3.125 MG TABLET PO SCH (08:25)
[2022-03-24 09:17] VITALS: BP 125/53
[2022-03-24 11:56] VITALS: BP_SYST 102; BP_SYST 97; BP_DIAS 40; BP_DIAS 54
== END 2022-03-24 14:00 | disposition home or self-care (01) | DRG 816 ==
LOC: ER 06:06 → 8WST 07:54 → EDBEDREQSVC 07:58 → EDBEDREQ 07:58 → EDBEDREQTM 07:58 → ENRESERV 08:56 → CANRESERV 09:14 → ENRESERV 09:14
PROVIDERS: ADMIT Internal Medicine; ATTEND Internal Medicine
DX: T40.5X1A Poisoning by cocaine, accidental (unintentional), initial encounter (principal); I50.23 Acute on chronic systolic (congestive) heart failure; I42.9 Cardiomyopathy, unspecified; I95.9 Hypotension, unspecified; K31.84 Gastroparesis; E11.43 Type 2 diabetes mellitus with diabetic autonomic (poly)neuropathy; I11.0 Hypertensive heart disease with heart failure; J70.4 Drug-induced interstitial lung disorders, unspecified; F14.90 Cocaine use, unspecified, uncomplicated; F17.210 Nicotine dependence, cigarettes, uncomplicated
CPT/HCPCS: 36415; 36600; 71045; 80053; 82375; 82805; 83605; 83880; 84484; 85025; 93005; 93970; 99285; J1885; J1940; Q0163

== ENCOUNTER 2022-03-29 01:25 | Emergency (ER) | payer MEDICAID, OTHER ==
[~2022-03-29] VITALS: Ht 157.5 cm; Wt 61.0 kg
[2022-03-29] MEDS ORDERED: ONDANSETRON HCL 4MG/2ML INJ IV ONE (03:00)
[2022-03-29] MEDS ORDERED: KETOROLAC 15MG/ML VIAL IV ONE (03:00)
[2022-03-29 03:19] LABS: HEMATOCRIT. 36.6 % (36.0-48.0); HEMOGLOBIN. 11.5 g/dL (12.0-16.0); MEAN CORPUSCULAR HEMOGLOBIN 24.9 pg (28.0-32.0); MEAN CORPUSCULAR VOLUME 79.1 fL (81.0-99.0); MEAN PLATELET VOLUME 8.7 fl (7.4-10.4); PLATELET 224 x1000/uL (130-400); RED BLOOD CELL COUNT 4.63 mill/uL (4.2-5.4); RED CELL DISTRIBUTION WIDTH 21.8 % (11.6-14.6)
[2022-03-29 03:31] LABS: CHLORIDE 108 mEq/L (98-107)
[2022-03-29 03:37] VITALS: BP 103/50
[2022-03-29 03:41] LABS: ETHANOL BLOOD < 10 mg/dL
[2022-03-29] MEDS ORDERED: FUROSEMIDE 40MG/4ML VIAL IVP ONE (04:00)
[2022-03-29 05:07] LABS: ATYPICAL LYMPHOCYTES 1; PLATELET ESTIMATE NORMAL
[2022-03-29] MEDS ORDERED: PROT20 MT (05:10)
[2022-03-29] MEDS ORDERED: METO5TAB86 MT (05:10)
== END 2022-03-29 05:45 | disposition home or self-care (01) ==
LOC: ER 02:20
DX: E11.43 Type 2 diabetes mellitus with diabetic autonomic (poly)neuropathy (principal); K31.84 Gastroparesis; J44.1 Chronic obstructive pulmonary disease with (acute) exacerbation; I11.0 Hypertensive heart disease with heart failure; I50.9 Heart failure, unspecified; Z98.890 Other specified postprocedural states; Z79.899 Other long term (current) drug therapy
CPT/HCPCS: 36415; 71045; 80053; 80320; 83605; 83690; 84484; 85025; 93005; 96374; 96375; 99285; J1885; J2405; J1940; G0480

== ENCOUNTER 2022-04-24 04:06 | Inpatient (IN) | payer MEDICAID ==
[~2022-04-24] VITALS: Ht 157.5 cm; Wt 62.6 kg
[~2022-04-24 04:06] MED LIST changes: +METO5TAB86 MT; +PROT20 MT
[2022-04-24] MEDS ORDERED: ALBUTEROL (0.083%) 2.5MG/3ML NEB HHN ONE (04:45)
[2022-04-24] MEDS ORDERED: IPRATROPIUM BROMIDE (0.02%) 0.5MG/2.5ML NEB HHN ONE (04:45)
[2022-04-24] MEDS ORDERED: FUROSEMIDE 40MG/4ML VIAL IVP ONE (04:45)
[2022-04-24] MEDS ORDERED: PREDNISONE 20MG TABLET PO ONE (04:45)
[2022-04-24 04:55] LABS: HEMATOCRIT. 41.4 % (36.0-48.0); HEMOGLOBIN. 13.4 g/dL (12.0-16.0); MEAN CORPUSCULAR HEMOGLOBIN 25.2 pg (28.0-32.0); MEAN CORPUSCULAR VOLUME 77.7 fL (81.0-99.0); MEAN PLATELET VOLUME 6.6 fl (7.4-10.4); PLATELET 263 x1000/uL (130-400); RED BLOOD CELL COUNT 5.33 mill/uL (4.2-5.4); RED CELL DISTRIBUTION WIDTH 21.8 % (11.6-14.6)
[2022-04-24 05:02] LABS: CHLORIDE 105 mEq/L (98-107)
[2022-04-24 05:37] LABS: PLATELET ESTIMATE NORMAL
[2022-04-24] MEDS ORDERED: POTASSIUM CHLORIDE 20MEQ TABLET SR PO NR (07:45)
[2022-04-24 08:40] VITALS: BP 118/69
[2022-04-24] MEDS ORDERED: ONDANSETRON HCL 4MG/2ML INJ IV PRN (10:30)
[2022-04-24] MEDS ORDERED: ACETAMINOPHEN 325MG TABLET PO PRN (10:30)
[2022-04-24] MEDS ORDERED: ALBUTEROL 6.7GM HFA INHALER ORI PRN (10:30)
[2022-04-24] MEDS: FUROSEMIDE 40MG/4ML VIAL IVP SCH ×2 (11:18→17:11)
[2022-04-24] MEDS ORDERED: KETOROLAC 15MG/ML VIAL IV PRN (12:30)
[2022-04-24 16:00] VITALS: BP 107/73
[2022-04-24] MEDS: HYDROCODONE/ACETAMINOPHEN 5/325MG TABLET PO PRN (17:11)
[2022-04-24] MEDS ORDERED: NALOXONE HCL 0.4MG/ML VIAL IV PRN (17:15)
[2022-04-24] MEDS ORDERED: METF-414 PO (17:32)
[2022-04-24 20:00] VITALS: BP 131/54
[2022-04-25] VITALS: BP 127/70
[2022-04-25] MEDS: HYDROCODONE/ACETAMINOPHEN 5/325MG TABLET PO PRN ×3 (01:10→13:23)
[2022-04-25 04:00] VITALS: BP 131/65
[2022-04-25 08:00] VITALS: BP 151/61
[2022-04-25] MEDS ORDERED: DEXAMETHASONE 6MG TABLET PO SCH (09:00)
[2022-04-25] MEDS ORDERED: POTASSIUM CHLORIDE 20MEQ TABLET SR PO SCH (09:00)
[2022-04-25] MEDS: FUROSEMIDE 40MG TABLET PO SCH ×2 (09:04→17:15)
[2022-04-25 12:00] VITALS: BP 106/44
[2022-04-25] MEDS ORDERED: FURO-151 PO ×2 (13:45)
[2022-04-25] MEDS ORDERED: CARV6.2548 MT ×2 (13:45)
[2022-04-25] MEDS ORDERED: FLUT1DIS3 INH ×2 (13:45)
[2022-04-25] MEDS ORDERED: ALBU18HF2 IH ×2 (13:45)
[2022-04-25 17:11] VITALS: BP 106/44
== END 2022-04-25 18:15 | disposition home or self-care (01) | DRG 140 ==
LOC: ER 04:06 → 7WST 06:04 → 7EST 04-25 12:39
PROVIDERS: ADMIT Internal Medicine; ATTEND Internal Medicine
DX: J44.1 Chronic obstructive pulmonary disease with (acute) exacerbation (principal); U07.1 COVID-19; I50.23 Acute on chronic systolic (congestive) heart failure; E44.0 Moderate protein-calorie malnutrition; J68.0 Bronchitis and pneumonitis due to chemicals, gases, fumes and vapors; I11.0 Hypertensive heart disease with heart failure; I42.9 Cardiomyopathy, unspecified; E11.9 Type 2 diabetes mellitus without complications; F17.210 Nicotine dependence, cigarettes, uncomplicated; E87.6 Hypokalemia; F14.90 Cocaine use, unspecified, uncomplicated
CPT/HCPCS: 36415; 71045; 80053; 83880; 84484; 85025; 87426; 93005; 94640; 94664; 99291; C9803; J1885; J1940; J7512

== ENCOUNTER 2022-05-12 12:32 | Emergency (ER) | payer MEDICAID ==
[~2022-05-12] VITALS: Ht 165.1 cm; Wt 59.0 kg
[~2022-05-12 12:32] MED LIST changes: -ALBU18HF2 IH; -CARV6.2548 MT; -FLUT1DIS3 INH; -FURO-151 PO; +METF-414 PO
[2022-05-12 12:35] VITALS: BP 129/75
[2022-05-12] MEDS ORDERED: ACETAMINOPHEN 325MG TABLET PO ONE (13:15)
[2022-05-12] MEDS ORDERED: ACETAMINOPHEN 500MG TABLET PO SCH (13:30)
[2022-05-12] MEDS ORDERED: DIPHENHYDRAMINE 50MG CAPSULE PO ONE (13:45)
[2022-05-12] MEDS ORDERED: HYDR-4233 RC (14:12)
== END 2022-05-12 14:32 | disposition home or self-care (01) ==
LOC: ER 13:08
DX: B36.0 Pityriasis versicolor (principal); I11.0 Hypertensive heart disease with heart failure; I50.9 Heart failure, unspecified; J45.909 Unspecified asthma, uncomplicated; E11.9 Type 2 diabetes mellitus without complications; Z79.899 Other long term (current) drug therapy
CPT/HCPCS: 99283; Q0163

== ENCOUNTER 2022-05-27 21:31 | Inpatient (IN) | payer MEDICAID, OTHER ==
[~2022-05-27] VITALS: Ht 162.6 cm; Wt 63.5 kg
[~2022-05-27 21:31] MED LIST changes: +HYDR-4233 RC
[2022-05-27] MEDS ORDERED: CALCIUM GLUCONATE 100MG/ML 10ML VIAL IV ONE (22:30)
[2022-05-27] MEDS ORDERED: ASPIRIN 81MG TABLET PO ONE (22:30)
[2022-05-27 22:46] LABS: HEMOGLOBIN. 12.1 g/dL (12.0-16.0); MEAN CORPUSCULAR HEMOGLOBIN 25.4 pg (28.0-32.0); MEAN CORPUSCULAR VOLUME 77.4 fL (81.0-99.0); MEAN PLATELET VOLUME 7.2 fl (7.4-10.4); PLATELET 247 x1000/uL (130-400); RED BLOOD CELL COUNT 4.78 mill/uL (4.2-5.4); RED CELL DISTRIBUTION WIDTH 20.8 % (11.6-14.6)
[2022-05-27 22:53] LABS: CHLORIDE 103 mEq/L (98-107)
[2022-05-27 23:05] LABS: ETHANOL BLOOD < 10 mg/dL
[2022-05-27 23:11] LABS: PLATELET ESTIMATE NORMAL
[2022-05-27] MEDS ORDERED: POTASSIUM CHLORIDE INJ 40 MEQ in DEXT 5% WATER 250 ML IV ONE (23:15)
[2022-05-27] MEDS ORDERED: POTASSIUM CHLORIDE 20MEQ TABLET SR PO NR (23:15)
[2022-05-27] MEDS ORDERED: FUROSEMIDE 100MG/10ML VIAL IVP NR (23:15)
[2022-05-27] MEDS: KCL 20MEQ/100ML X 2 FOR TOTAL KCL 40MEQ/200ML IV SCH (23:31)
[2022-05-28 00:31] LABS: *AMPHETAMINES SCREEN URINE PRESUMTIVE POSITIVE (NEGATIVE); *BARBITURATES SCREEN URINE NEGATIVE (NEGATIVE); *BENZODIAZEPINES SCREEN URINE NEGATIVE (NEGATIVE); *COCAINE SCREEN URINE PRESUMTIVE POSITIVE (NEGATIVE); CANNABINOID URINE SCREEN NEGATIVE (NEGATIVE); METHADONE URINE SCREEN NEGATIVE (NEGATIVE); OPIATES URINE SCREEN NEGATIVE (NEGATIVE); PHENCYCLIDINE URINE SCREEN NEGATIVE (NEGATIVE)
[2022-05-28] MEDS: KCL 20MEQ/100ML X 2 FOR TOTAL KCL 40MEQ/200ML IV SCH (01:36)
[2022-05-28 10:30] VITALS: BP 128/58
[2022-05-28 11:12] VITALS: BP 127/59
[2022-05-28] MEDS ORDERED: DEXTROSE 50% WATER 50ML SYRINGE IV PRN ×2 (11:45)
[2022-05-28] MEDS ORDERED: ACETAMINOPHEN 325MG TABLET PO PRN (11:45)
[2022-05-28] MEDS ORDERED: IPRATROPIUM/ALBUTEROL 0.5-3(2.5)MG/3ML NEB HHN SCH (12:00)
[2022-05-28] MEDS ORDERED: ENOXAPARIN 40MG/0.4ML SYR SUBCUT SCH (12:00)
[2022-05-28] MEDS ORDERED: BLOOD SUGAR DIAGNOSTIC STRIP TEST SCH (12:20)
[2022-05-28] MEDS ORDERED: INSULIN LISPRO 100 UNITS/ML SUBCUT SCH (12:50)
[2022-05-28] MEDS ORDERED: POTASSIUM CHLORIDE INJ 40 MEQ in DEXT 5% WATER 250 ML IV ONE (14:00)
[2022-05-28] MEDS ORDERED: LISINOPRIL 2.5MG TABLET PO SCH (14:30)
[2022-05-28] MEDS ORDERED: CARVEDILOL 3.125 MG TABLET PO SCH (21:00)
[2022-05-29] MEDS ORDERED: FUROSEMIDE 40MG/4ML VIAL IVP SCH (09:00)
[2022-05-29] MEDS ORDERED: POTASSIUM CHLORIDE 20MEQ/PACKET PO SCH ×2 (09:00)
[2022-05-29] MEDS ORDERED: METF-414 MT (16:04)
[2022-05-29] MEDS ORDERED: FURO-151 MT (16:04)
== END 2022-05-28 15:41 | disposition left against medical advice (07) | DRG 194 ==
LOC: ER 21:31 → 6WST 05-28 01:48 → ENRESERV 05-28 09:08
PROVIDERS: ADMIT Internal Medicine; ATTEND Internal Medicine
DX: I11.0 Hypertensive heart disease with heart failure (principal); I27.20 Pulmonary hypertension, unspecified; E44.0 Moderate protein-calorie malnutrition; I42.9 Cardiomyopathy, unspecified; J68.0 Bronchitis and pneumonitis due to chemicals, gases, fumes and vapors; F14.10 Cocaine abuse, uncomplicated; I50.23 Acute on chronic systolic (congestive) heart failure; T59.891A Toxic effect of other specified gases, fumes and vapors, accidental (unintentional), initial encounter; E11.9 Type 2 diabetes mellitus without complications; E87.6 Hypokalemia; I08.3 Combined rheumatic disorders of mitral, aortic and tricuspid valves; Z20.822 Contact with and (suspected) exposure to COVID-19; F15.10 Other stimulant abuse, uncomplicated; Y92.89 Other specified places as the place of occurrence of the external cause; Z91.199 Patient's noncompliance with other medical treatment and regimen due to unspecified reason; Z86.16 Personal history of COVID-19; Z59.00 Homelessness unspecified; Z91.14 Patient's other noncompliance with medication regimen; Z68.24 Body mass index [BMI] 24.0-24.9, adult; Z79.899 Other long term (current) drug therapy; Z71.51 Drug abuse counseling and surveillance of drug abuser
CPT/HCPCS: 36415; 71045; 80053; 80305; 80320; 82962; 83880; 84484; 85025; 87426; 93005; 99291; C9803; J0610; J1940; J3480; J7060; G0480

== ENCOUNTER 2022-05-29 06:45 | Inpatient (IN) | payer MEDICAID, OTHER ==
[~2022-05-29] VITALS: Ht 162.6 cm; Wt 52.3 kg
[2022-05-29] MEDS ORDERED: ACETAMINOPHEN 325MG TABLET PO ONE (08:00)
[2022-05-29 08:18] LABS: HEMATOCRIT. 37.9 % (36.0-48.0); HEMOGLOBIN. 12.2 g/dL (12.0-16.0); MEAN CORPUSCULAR HEMOGLOBIN 25.2 pg (28.0-32.0); MEAN CORPUSCULAR VOLUME 78.4 fL (81.0-99.0); MEAN PLATELET VOLUME 7.4 fl (7.4-10.4); PLATELET 252 x1000/uL (130-400); RED BLOOD CELL COUNT 4.83 mill/uL (4.2-5.4); RED CELL DISTRIBUTION WIDTH 21.3 % (11.6-14.6)
[2022-05-29 08:24] LABS: CHLORIDE 109 mEq/L (98-107)
[2022-05-29 09:34] LABS: PLATELET ESTIMATE NORMAL
[2022-05-29 12:30] VITALS: BP 118/58
[2022-05-29] MEDS ORDERED: POTASSIUM CHLORIDE 20MEQ TABLET SR PO NR (12:30)
[2022-05-29] MEDS ORDERED: ACETAMINOPHEN 325MG TABLET PO PRN ×2 (13:45)
[2022-05-29] MEDS ORDERED: ONDANSETRON HCL 4MG/2ML INJ IV PRN (13:45)
[2022-05-29] MEDS ORDERED: DOCUSATE SODIUM 100MG CAPSULE PO PRN (13:45)
[2022-05-29] MEDS ORDERED: LORAZEPAM 0.5MG TABLET PO PRN (13:45)
[2022-05-29] MEDS ORDERED: CLONIDINE 0.1MG TABLET PO PRN (13:45)
[2022-05-29] MEDS: HYDROCODONE/ACETAMINOPHEN 5/325MG TABLET PO PRN ×3 (14:04→22:35)
[2022-05-29] MEDS: LISINOPRIL 2.5MG TABLET PO SCH (14:04)
[2022-05-29] MEDS: CARVEDILOL 3.125 MG TABLET PO SCH ×3 (14:07→20:24)
[2022-05-29 15:37] VITALS: BP 105/57
[2022-05-29] MEDS ORDERED: FURO-151 MT (16:04)
[2022-05-29] MEDS ORDERED: METF-414 MT (16:04)
[2022-05-29] MEDS ORDERED: INFLUENZA VACCINE 05/PF 0.5 ML SYRINGE IM ONE (16:45)
[2022-05-29] MEDS ORDERED: PNEUMOCOCCAL 23-VAL P-SAC VAC 0.5 ML IM ONE (16:45)
[2022-05-29 20:24] VITALS: BP 107/56
[2022-05-29] MEDS: IPRATROPIUM/ALBUTEROL 0.5-3(2.5)MG/3ML NEB HHN PRN (21:03)
[2022-05-30] VITALS: BP 112/72
[2022-05-30] MEDS: IPRATROPIUM/ALBUTEROL 0.5-3(2.5)MG/3ML NEB HHN PRN ×3 (01:19→09:51)
[2022-05-30 04:00] VITALS: BP 108/72
[2022-05-30 07:38] LABS: BASOPHILS % 0.6 % (0.0-2.0); EOSINOPHILS % 0.4 % (0.0-5.0); HEMATOCRIT. 37.7 % (36.0-48.0); HEMOGLOBIN. 12.3 g/dL (12.0-16.0); LYMPHOCYTES % 17.8 % (20.0-50.0); MEAN CORPUSCULAR HEMOGLOBIN 25.6 pg (28.0-32.0); MEAN CORPUSCULAR VOLUME 78.4 fL (81.0-99.0); MEAN PLATELET VOLUME 7.8 fl (7.4-10.4); MONOCYTES % 14.6 % (2.0-8.0); NEUTROPHILS % 66.6 % (40.0-76.0); PLATELET 260 x1000/uL (130-400); RED BLOOD CELL COUNT 4.81 mill/uL (4.2-5.4); RED CELL DISTRIBUTION WIDTH 21.4 % (11.6-14.6)
[2022-05-30 08:17] VITALS: BP 105/54
[2022-05-30] MEDS: HYDROCODONE/ACETAMINOPHEN 5/325MG TABLET PO PRN ×3 (08:28→22:26)
[2022-05-30] MEDS: LISINOPRIL 2.5MG TABLET PO SCH (08:28)
[2022-05-30] MEDS: CARVEDILOL 3.125 MG TABLET PO SCH ×2 (08:28→22:29)
[2022-05-30 09:36] LABS: CHLORIDE 108 mEq/L (98-107)
[2022-05-30] MEDS: FLUOXETINE HCL 10 MG CAPSULE PO SCH (11:35)
[2022-05-30] MEDS: FUROSEMIDE 40MG/4ML VIAL IVP SCH ×2 (11:36→17:01)
[2022-05-30 12:00] VITALS: BP 132/60
[2022-05-30 15:43] VITALS: BP 108/50
[2022-05-30 20:00] VITALS: BP 106/57
[2022-05-30] MEDS: QUETIAPINE FUMARATE 50MG TABLET PO SCH (22:29)
[2022-05-30] MEDS: TRAZODONE HCL 50MG TABLET PO SCH (22:29)
[2022-05-31] VITALS: BP 105/56
[2022-05-31 04:00] VITALS: BP 107/59
[2022-05-31 07:32] VITALS: BP 95/50
[2022-05-31] MEDS: CARVEDILOL 3.125 MG TABLET PO SCH ×2 (08:19→21:37)
[2022-05-31] MEDS: LISINOPRIL 2.5MG TABLET PO SCH (08:19)
[2022-05-31] MEDS: FLUOXETINE HCL 10 MG CAPSULE PO SCH (08:19)
[2022-05-31] MEDS: FUROSEMIDE 40MG/4ML VIAL IVP SCH ×2 (08:19→17:05)
[2022-05-31] MEDS: IPRATROPIUM/ALBUTEROL 0.5-3(2.5)MG/3ML NEB HHN PRN (08:41)
[2022-05-31] MEDS: HYDROCODONE/ACETAMINOPHEN 5/325MG TABLET PO PRN ×2 (09:45→18:23)
[2022-05-31 11:33] VITALS: BP 106/50
[2022-05-31 15:43] VITALS: BP 104/50
[2022-05-31 20:00] VITALS: BP 109/68
[2022-05-31] MEDS: TRAZODONE HCL 50MG TABLET PO SCH (21:35)
[2022-05-31] MEDS: QUETIAPINE FUMARATE 50MG TABLET PO SCH (21:35)
[2022-06-01] VITALS (7 sets, daily range): BP systolic 105–129; BP diastolic 50–82
[2022-06-01 07:13] LABS: BASOPHILS % 0.6 % (0.0-2.0); EOSINOPHILS % 2.6 % (0.0-5.0); HEMATOCRIT. 39.2 % (36.0-48.0); HEMOGLOBIN. 12.6 g/dL (12.0-16.0); LYMPHOCYTES % 13.8 % (20.0-50.0); MEAN CORPUSCULAR HEMOGLOBIN 25.2 pg (28.0-32.0); MEAN CORPUSCULAR VOLUME 78.3 fL (81.0-99.0); MEAN PLATELET VOLUME 7.4 fl (7.4-10.4); MONOCYTES % 14.2 % (2.0-8.0); NEUTROPHILS % 68.8 % (40.0-76.0); PLATELET 302 x1000/uL (130-400); RED CELL DISTRIBUTION WIDTH 21.7 % (11.6-14.6)
[2022-06-01 07:33] LABS: CHLORIDE 104 mEq/L (98-107)
[2022-06-01] MEDS: FLUOXETINE HCL 10 MG CAPSULE PO SCH (08:35)
[2022-06-01] MEDS: FUROSEMIDE 40MG/4ML VIAL IVP SCH (08:36)
[2022-06-01] MEDS: CARVEDILOL 3.125 MG TABLET PO SCH ×2 (08:36→21:25)
[2022-06-01] MEDS: LISINOPRIL 2.5MG TABLET PO SCH (08:36)
[2022-06-01] MEDS: HYDROCODONE/ACETAMINOPHEN 5/325MG TABLET PO PRN ×2 (08:57→15:06)
[2022-06-01] MEDS: IPRATROPIUM/ALBUTEROL 0.5-3(2.5)MG/3ML NEB HHN PRN ×2 (12:17→20:15)
[2022-06-01] MEDS ORDERED: METHYLPREDNISOLONE SOD SUCC 40 MG/ML VIAL IV SCH (12:30)
[2022-06-01 18:52] LABS: *AMPHETAMINES SCREEN URINE NEGATIVE (NEGATIVE); *BARBITURATES SCREEN URINE NEGATIVE (NEGATIVE); *BENZODIAZEPINES SCREEN URINE NEGATIVE (NEGATIVE); *COCAINE SCREEN URINE NEGATIVE (NEGATIVE); CANNABINOID URINE SCREEN NEGATIVE (NEGATIVE); METHADONE URINE SCREEN NEGATIVE (NEGATIVE); OPIATES URINE SCREEN PRESUMTIVE POSITIVE (NEGATIVE); PHENCYCLIDINE URINE SCREEN NEGATIVE (NEGATIVE)
[2022-06-01] MEDS: QUETIAPINE FUMARATE 50MG TABLET PO SCH (21:23)
[2022-06-01] MEDS: TRAZODONE HCL 50MG TABLET PO SCH (21:24)
[2022-06-01] MEDS: METHYLPREDNISOLONE SOD SUCC 40 MG/ML VIAL IV SCH (21:26)
[2022-06-01] MEDS: SILDENAFIL CITRATE 20MG TABLET PO SCH (23:24)
[2022-06-02] VITALS: BP 131/55
[2022-06-02 04:00] VITALS: BP 104/59
[2022-06-02] MEDS: SILDENAFIL CITRATE 20MG TABLET PO SCH ×2 (06:00→13:15)
[2022-06-02 08:00] VITALS: BP 114/59
[2022-06-02 08:41] VITALS: BP 102/63
[2022-06-02] MEDS: LISINOPRIL 2.5MG TABLET PO SCH (09:00)
[2022-06-02] MEDS ORDERED: FUROSEMIDE 40MG/4 ML UDC PO SCH (09:00)
[2022-06-02] MEDS: CARVEDILOL 3.125 MG TABLET PO SCH ×2 (09:00→10:09)
[2022-06-02] MEDS: HYDROCODONE/ACETAMINOPHEN 5/325MG TABLET PO PRN (09:58)
[2022-06-02] MEDS: METHYLPREDNISOLONE SOD SUCC 40 MG/ML VIAL IV SCH (10:08)
[2022-06-02] MEDS: FLUOXETINE HCL 10 MG CAPSULE PO SCH (10:08)
[2022-06-02 11:52] VITALS: BP 114/62
[2022-06-02] MEDS ORDERED: MED4 MT (13:10)
[2022-06-02] MEDS ORDERED: COR3 PO (13:10)
[2022-06-02] MEDS ORDERED: LISI2.5T47 PO (13:10)
[2022-06-02] MEDS ORDERED: ALBU18HF2 IH (13:10)
[2022-06-02] MEDS ORDERED: REV20 PO (13:10)
[2022-06-02 15:43] VITALS: BP 101/56
[2022-06-02] MEDS ORDERED: FLUO10TA3 MT (16:19)
[2022-06-02] MEDS ORDERED: FURO40TA5 MT (16:19)
[2022-06-02] MEDS ORDERED: METF-414 MT (16:19)
== END 2022-06-02 16:00 | disposition home or self-care (01) | DRG 194 ==
LOC: ER 06:51 → 8WST 11:10 → ENRESERV 11:49
PROVIDERS: ADMIT Internal Medicine; ATTEND Internal Medicine
DX: I11.0 Hypertensive heart disease with heart failure (principal); J96.01 Acute respiratory failure with hypoxia; E44.1 Mild protein-calorie malnutrition; J68.0 Bronchitis and pneumonitis due to chemicals, gases, fumes and vapors; I50.23 Acute on chronic systolic (congestive) heart failure; E11.9 Type 2 diabetes mellitus without complications; G89.29 Other chronic pain; I42.0 Dilated cardiomyopathy; R77.8 Other specified abnormalities of plasma proteins; I27.29 Other secondary pulmonary hypertension; M54.30 Sciatica, unspecified side; I37.1 Nonrheumatic pulmonary valve insufficiency; F15.90 Other stimulant use, unspecified, uncomplicated; F14.90 Cocaine use, unspecified, uncomplicated; Z68.1 Body mass index [BMI] 19.9 or less, adult; Z79.899 Other long term (current) drug therapy; Z91.14 Patient's other noncompliance with medication regimen; Z91.199 Patient's noncompliance with other medical treatment and regimen due to unspecified reason; Z99.81 Dependence on supplemental oxygen
CPT/HCPCS: 36415; 71045; 80048; 80053; 80061; 80305; 83036; 83880; 84484; 85025; 90686; 90732; 93005; 93306; 94640; 99285; J1940; J2920

== ENCOUNTER 2022-06-04 01:10 | Emergency (ER) | payer MEDICAID, OTHER ==
[~2022-06-04] VITALS: Ht 162.6 cm; Wt 59.0 kg
[~2022-06-04 01:10] MED LIST changes: +ALBU18HF2 IH; +COR3 PO; +FLUO10TA3 MT; +FURO-151 MT; +FURO40TA5 MT; +LISI2.5T47 PO; +MED4 MT; +METF-414 MT; -METF-414 PO; +REV20 PO
[2022-06-04] MEDS ORDERED: FURO-151 MT (05:07)
[2022-06-04] MEDS ORDERED: HYDROCODONE/ACETAMINOPHEN 5/325MG TABLET PO ONE (05:15)
[2022-06-04 05:40] VITALS: BP 115/69
== END 2022-06-04 05:45 | disposition home or self-care (01) ==
LOC: ER 01:10
DX: I11.0 Hypertensive heart disease with heart failure (principal); I50.9 Heart failure, unspecified; J44.1 Chronic obstructive pulmonary disease with (acute) exacerbation; I10 Essential (primary) hypertension; E11.9 Type 2 diabetes mellitus without complications; Z98.890 Other specified postprocedural states; Z79.899 Other long term (current) drug therapy
CPT/HCPCS: 36415; 71045; 83880; 84484; 93005; 99285

== ENCOUNTER 2022-06-04 07:27 | Emergency (ER) | payer MEDICAID ==
[~2022-06-04] VITALS: Ht 165.1 cm; Wt 138.0 kg
[2022-06-04 07:35] VITALS: BP 147/70
== END 2022-06-04 10:05 | disposition left against medical advice (07) ==
LOC: ER 07:27
DX: Z53.21 Procedure and treatment not carried out due to patient leaving prior to being seen by health care provider (principal)

== ENCOUNTER 2022-06-17 11:05 | Emergency (ER) | payer MEDICAID, OTHER ==
[~2022-06-17] VITALS: Ht 157.5 cm; Wt 60.0 kg
[~2022-06-17 11:05] MED LIST changes: +FLUT1DIS3 INH; -MED4 MT; +P20 MT
[2022-06-17 11:14] VITALS: BP 112/68
[2022-06-17] MEDS ORDERED: CEPH500C2 MT (11:21)
[2022-06-17] MEDS ORDERED: CEPHALEXIN 250MG CAPSULE PO ONE (11:30)
== END 2022-06-17 12:18 | disposition home or self-care (01) ==
LOC: ER 11:05
DX: N39.0 Urinary tract infection, site not specified (principal); I11.0 Hypertensive heart disease with heart failure; I50.9 Heart failure, unspecified; J44.9 Chronic obstructive pulmonary disease, unspecified; Z79.899 Other long term (current) drug therapy
CPT/HCPCS: 99283

== ENCOUNTER 2022-07-31 22:53 | Emergency (ER) | payer MEDICAID ==
[~2022-07-31] VITALS: Ht 162.6 cm; Wt 80.0 kg
[~2022-07-31 22:53] MED LIST changes: +CEPH500C2 MT
[2022-07-31] MEDS ORDERED: ALBUTEROL (0.083%) 2.5MG/3ML NEB HHN STA (23:34)
[2022-07-31] MEDS ORDERED: METHYLPREDNISOLONE SOD SUCC 125 MG/2 ML VIAL IV STA (23:34)
[2022-07-31] MEDS ORDERED: IPRATROPIUM BROMIDE (0.02%) 0.5MG/2.5ML NEB HHN STA (23:34)
[2022-07-31] MEDS ORDERED: FUROSEMIDE 40MG/4ML VIAL IV ONE (23:45)
[2022-08-01 00:14] LABS: BASOPHILS % 1.5 % (0.0-2.0); HEMATOCRIT. 39.4 % (36.0-48.0); HEMOGLOBIN. 12.6 g/dL (12.0-16.0); LYMPHOCYTES % 11.8 % (20.0-50.0); MEAN CORPUSCULAR HEMOGLOBIN 24.6 pg (28.0-32.0); MEAN CORPUSCULAR VOLUME 76.9 fL (81.0-99.0); MONOCYTES % 9.7 % (2.0-8.0); PLATELET 303 x1000/uL (130-400); RED BLOOD CELL COUNT 5.13 mill/uL (4.2-5.4); RED CELL DISTRIBUTION WIDTH 22.3 % (11.6-14.6)
[2022-08-01 00:22] LABS: CHLORIDE 103 mEq/L (98-107)
[2022-08-01 02:15] LABS: PLATELET ESTIMATE NORMAL
[2022-08-01] MEDS ORDERED: ALBUTEROL (0.083%) 2.5MG/3ML NEB HHN NR (03:15)
[2022-08-01] MEDS ORDERED: FUROSEMIDE 40MG/4ML VIAL IV NR (03:15)
[2022-08-01] MEDS ORDERED: METHYLPREDNISOLONE SOD SUCC 125 MG/2 ML VIAL IV NR (03:15)
[2022-08-01] MEDS ORDERED: IPRATROPIUM BROMIDE (0.02%) 0.5MG/2.5ML NEB HHN NR (03:15)
[2022-08-01 03:20] VITALS: BP 151/100
[2022-08-01] MEDS ORDERED: ACETAMINOPHEN 325MG TABLET PO ONE (04:15)
== END 2022-08-01 05:01 | disposition home or self-care (01) ==
LOC: ER 22:53
DX: J44.1 Chronic obstructive pulmonary disease with (acute) exacerbation (principal); I11.0 Hypertensive heart disease with heart failure; I50.9 Heart failure, unspecified; Z91.14 Patient's other noncompliance with medication regimen
CPT/HCPCS: 36415; 71045; 80053; 83880; 84484; 85025; 96374; 96375; 99284; J1940; J2930; Z7610

== ENCOUNTER 2022-09-06 13:14 | Emergency (ER) | payer MEDICAID, OTHER ==
[~2022-09-06] VITALS: Ht 162.6 cm; Wt 49.0 kg
[2022-09-06] MEDS ORDERED: NAPR-677 MT (15:10)
[2022-09-06] MEDS ORDERED: ALBU6.7H3 INH (15:10)
[2022-09-06 15:50] VITALS: BP 110/53
== END 2022-09-06 18:14 | disposition home or self-care (01) ==
LOC: ER 17:15
DX: R06.00 Dyspnea, unspecified (principal); I50.9 Heart failure, unspecified; E11.9 Type 2 diabetes mellitus without complications; J44.1 Chronic obstructive pulmonary disease with (acute) exacerbation; Z79.899 Other long term (current) drug therapy
CPT/HCPCS: 99283; Z7610

== ENCOUNTER 2022-09-19 21:50 | Inpatient (IN) | payer MEDICAID, OTHER ==
[~2022-09-19] VITALS: Ht 165.1 cm; Wt 64.9 kg
[~2022-09-19 21:50] MED LIST changes: +ALBU6.7H3 INH; -FLUO10TA3 MT; +FLUO10TA34 MT; +NAPR-677 MT
[2022-09-20] MEDS ORDERED: IBUPROFEN 400MG TABLET PO ONE (01:00)
[2022-09-20 03:14] LABS: HEMATOCRIT. 27.2 % (36.0-48.0); MEAN CORPUSCULAR HEMOGLOBIN 24.8 pg (28.0-32.0); MEAN CORPUSCULAR VOLUME 75.4 fL (81.0-99.0); MEAN PLATELET VOLUME 7.3 fl (7.4-10.4); PLATELET 246 x1000/uL (130-400); RED BLOOD CELL COUNT 3.61 mill/uL (4.2-5.4); RED CELL DISTRIBUTION WIDTH 24.2 % (11.6-14.6)
[2022-09-20 03:26] LABS: CHLORIDE 99 mEq/L (98-107)
[2022-09-20] MEDS ORDERED: ASPIRIN 81MG TABLET PO ONE (04:00)
[2022-09-20 07:21] LABS: PLATELET ESTIMATE NORMAL
[2022-09-20 11:35] VITALS: BP 88/49
[2022-09-20 12:00] VITALS: BP 88/49
[2022-09-20] MEDS ORDERED: HYDROCODONE/ACETAMINOPHEN 5/325MG TABLET PO NR (12:00)
[2022-09-20] MEDS ORDERED: ONDANSETRON HCL 4MG/2ML INJ IV PRN (12:00)
[2022-09-20] MEDS ORDERED: POTASSIUM CHLORIDE 20MEQ TABLET SR PO NR (12:00)
[2022-09-20] MEDS ORDERED: IPRATROPIUM/ALBUTEROL 0.5-3(2.5)MG/3ML NEB HHN PRN (12:00)
[2022-09-20 16:00] VITALS: BP 91/44
[2022-09-20 20:00] VITALS: BP 121/49
[2022-09-20] MEDS: LORAZEPAM 1MG TABLET PO PRN (20:29)
[2022-09-21] VITALS: BP 125/51
[2022-09-21 00:32] LABS: *AMPHETAMINES SCREEN URINE NEGATIVE (NEGATIVE); *BARBITURATES SCREEN URINE NEGATIVE (NEGATIVE); *BENZODIAZEPINES SCREEN URINE NEGATIVE (NEGATIVE); *COCAINE SCREEN URINE NEGATIVE (NEGATIVE); CANNABINOID URINE SCREEN NEGATIVE (NEGATIVE); METHADONE URINE SCREEN NEGATIVE (NEGATIVE); OPIATES URINE SCREEN PRESUMTIVE POSITIVE (NEGATIVE); PHENCYCLIDINE URINE SCREEN NEGATIVE (NEGATIVE)
[2022-09-21 04:00] VITALS: BP 119/55
[2022-09-21] MEDS: LORAZEPAM 1MG TABLET PO PRN (04:08)
[2022-09-21] MEDS ORDERED: *PATIENT'S OWN MEDICATION STORAGE XX SCH (04:30)
[2022-09-21 08:00] VITALS: BP 135/66
[2022-09-21] MEDS: FLUOXETINE HCL 10 MG CAPSULE PO SCH (10:26)
[2022-09-21] MEDS: QUETIAPINE FUMARATE 200MG TABLET PO SCH (10:26)
[2022-09-21 11:57] VITALS: BP 117/64
[2022-09-21] MEDS: SPIRONOLACTONE 25MG TABLET PO SCH (15:34)
[2022-09-21] MEDS: KETOROLAC 15MG/ML VIAL IV PRN (15:34)
[2022-09-21 20:00] VITALS: BP 111/58
[2022-09-21] MEDS: TRAZODONE HCL 50MG TABLET PO SCH (21:05)
[2022-09-21] MEDS: CARVEDILOL 3.125 MG TABLET PO SCH (21:06)
[2022-09-21] MEDS ORDERED: HALOPERIDOL LACTATE 5MG/ML VIAL IM NR (22:30)
[2022-09-22] VITALS: BP 116/66
[2022-09-22] MEDS: LORAZEPAM 1MG TABLET PO PRN ×3 (02:41→20:15)
[2022-09-22 04:00] VITALS: BP 113/59
[2022-09-22] MEDS: FLUOXETINE HCL 10 MG CAPSULE PO SCH (08:59)
[2022-09-22] MEDS: QUETIAPINE FUMARATE 200MG TABLET PO SCH (08:59)
[2022-09-22] MEDS: SPIRONOLACTONE 25MG TABLET PO SCH (08:59)
[2022-09-22 09:00] VITALS: BP 109/40
[2022-09-22] MEDS: CARVEDILOL 3.125 MG TABLET PO SCH ×2 (09:00→22:15)
[2022-09-22 14:43] VITALS: BP 145/60
[2022-09-22] MEDS: KETOROLAC 15MG/ML VIAL IV PRN (14:50)
[2022-09-22 20:00] VITALS: BP 145/80
[2022-09-22] MEDS ORDERED: HALOPERIDOL LACTATE 5MG/ML VIAL IM NR (20:15)
[2022-09-22] MEDS ORDERED: HALOPERIDOL 5MG TABLET PO NR (20:15)
[2022-09-22] MEDS: HYDROCODONE/ACETAMINOPHEN 5/325MG TABLET PO PRN (20:16)
[2022-09-22] MEDS: TRAZODONE HCL 50MG TABLET PO SCH (22:15)
[2022-09-22] MEDS: IPRATROPIUM BROMIDE (0.02%) 0.5MG/2.5ML NEB HHN PRN (22:20)
[2022-09-22] MEDS: ALBUTEROL (0.083%) 2.5MG/3ML NEB HHN PRN (22:20)
[2022-09-22] MEDS ORDERED: NALOXONE HCL 0.4MG/ML VIAL IV PRN (23:45)
[2022-09-23] VITALS: BP 151/72
[2022-09-23] MEDS: LORAZEPAM 1MG TABLET PO PRN (00:07)
[2022-09-23] MEDS: KETOROLAC 15MG/ML VIAL IV PRN ×2 (00:29→06:25)
[2022-09-23] MEDS: ALBUTEROL (0.083%) 2.5MG/3ML NEB HHN PRN ×2 (02:30→12:25)
[2022-09-23] MEDS: IPRATROPIUM BROMIDE (0.02%) 0.5MG/2.5ML NEB HHN PRN ×2 (02:31→12:25)
[2022-09-23] MEDS ORDERED: LORAZEPAM 2MG/ML CPJ IV SCH (06:50)
[2022-09-23 07:38] LABS: CHLORIDE 101 mEq/L (98-107)
[2022-09-23 08:00] VITALS: BP 96/32
[2022-09-23] MEDS: SPIRONOLACTONE 25MG TABLET PO SCH (09:00)
[2022-09-23] MEDS: CARVEDILOL 3.125 MG TABLET PO SCH ×2 (09:00→21:35)
[2022-09-23] MEDS: QUETIAPINE FUMARATE 200MG TABLET PO SCH (09:48)
[2022-09-23] MEDS: FLUOXETINE HCL 10 MG CAPSULE PO SCH (09:48)
[2022-09-23] MEDS ORDERED: BUPIVACAINE HCL/PF 0.5% (5MG/ML) 30ML ONE (10:00)
[2022-09-23] MEDS ORDERED: LIDOCAINE HCL 1% 20ML VIAL (Pyxis) INJ ONE (10:00)
[2022-09-23] MEDS ORDERED: FENTANYL CITRATE/PF 50MCG/ML 2ML VIAL ONE (10:03)
[2022-09-23] MEDS ORDERED: MIDAZOLAM HCL 2 MG/2 ML VIAL ONE (10:03)
[2022-09-23] MEDS ORDERED: PROPOFOL 200MG/20ML VIAL IV ONE (10:03)
[2022-09-23] MEDS ORDERED: ONDANSETRON HCL 4MG/2ML INJ ONE (10:05)
[2022-09-23] MEDS ORDERED: POLYMYXIN B SULFATE 500000 UNITS/VIAL ONE (10:14)
[2022-09-23 12:00] VITALS: BP 94/39
[2022-09-23] MEDS ORDERED: DEXTROSE 50% WATER 50ML SYRINGE IV NR (12:00)
[2022-09-23 13:23] LABS: BG BASE EXCESS -2.7 mmol/L (-2.0-2.0); BG CARBOXYHEMOGLOBIN 0.3 % (0.5-1.5); BG DEOXYHEMOGLOBIN 3.8 % (0.0-5.0); BG FRACTION INSPIRED OXYGEN 21; BG METHEMOGLOBIN 0.3 % (0.0-1.5); BG OXYGEN SATURATION 96.2 % (92.0-98.5); BG OXYHEMOGLOBIN 95.6 % (94.0-97.0); BG PCO2 27.6 mmHg (35.0-45.0); BG PH 7.477 (7.350-7.450); BG PO2 87.4 mmHg (75.0-100.0); BG SAMPLE SITE RIGHT BRACHIAL; BG TOTAL HEMOGLOBIN 10.1 g/dL (12.0-18.0); BG VENT MODE ROOM AIR
[2022-09-23] MEDS ORDERED: DEXTROSE 10% WATER 500 ML IV ONE (14:00)
[2022-09-23 16:00] VITALS: BP 115/64
[2022-09-23 18:47] LABS: CHLORIDE 103 mEq/L (98-107)
[2022-09-23] MEDS ORDERED: SODIUM POLYSTYRENE SULFONATE 15 G/60 ML BOT PO NR (19:30)
[2022-09-23] MEDS ORDERED: QUETIAPINE FUMARATE 200MG TABLET PO SCH (21:00)
[2022-09-23] MEDS: TRAZODONE HCL 50MG TABLET PO SCH (21:35)
[2022-09-24] VITALS: BP 103/48
[2022-09-24] MEDS: HYDROCODONE/ACETAMINOPHEN 5/325MG TABLET PO PRN ×5 (00:29→21:12)
[2022-09-24] MEDS: ALBUTEROL (0.083%) 2.5MG/3ML NEB HHN PRN ×4 (03:48→20:46)
[2022-09-24 06:54] LABS: BASOPHILS % 1.5 % (0.0-2.0); EOSINOPHILS % 2.3 % (0.0-5.0); HEMATOCRIT. 31.4 % (36.0-48.0); LYMPHOCYTES % 11.9 % (20.0-50.0); MEAN CORPUSCULAR HEMOGLOBIN 24.7 pg (28.0-32.0); MEAN CORPUSCULAR VOLUME 77.4 fL (81.0-99.0); MEAN PLATELET VOLUME 7.5 fl (7.4-10.4); MONOCYTES % 14.7 % (2.0-8.0); NEUTROPHILS % 69.6 % (40.0-76.0); PLATELET 275 x1000/uL (130-400); RED BLOOD CELL COUNT 4.06 mill/uL (4.2-5.4)
[2022-09-24 07:38] LABS: CHLORIDE 101 mEq/L (98-107)
[2022-09-24 08:00] VITALS: BP 103/40
[2022-09-24] MEDS: IPRATROPIUM BROMIDE (0.02%) 0.5MG/2.5ML NEB HHN PRN ×3 (08:24→20:46)
[2022-09-24] MEDS: CARVEDILOL 3.125 MG TABLET PO SCH ×2 (09:50→21:11)
[2022-09-24] MEDS: FLUOXETINE HCL 10 MG CAPSULE PO SCH (09:50)
[2022-09-24] MEDS: DOCUSATE SODIUM 100MG CAPSULE PO SCH ×3 (09:51→16:31)
[2022-09-24 12:00] VITALS: BP 111/55
[2022-09-24 14:05] LABS: PLATELET ESTIMATE NORMAL
[2022-09-24 16:00] VITALS: BP 102/58
[2022-09-24 20:00] VITALS: BP 128/45
[2022-09-24] MEDS: TRAZODONE HCL 50MG TABLET PO SCH (21:11)
[2022-09-25] VITALS: BP 156/62
[2022-09-25] MEDS: ALBUTEROL (0.083%) 2.5MG/3ML NEB HHN PRN (00:52)
[2022-09-25] MEDS: IPRATROPIUM BROMIDE (0.02%) 0.5MG/2.5ML NEB HHN PRN (00:52)
[2022-09-25] MEDS: HYDROCODONE/ACETAMINOPHEN 5/325MG TABLET PO PRN ×5 (01:07→20:14)
[2022-09-25 04:00] VITALS: BP 121/53
[2022-09-25 08:00] VITALS: BP 115/49
[2022-09-25] MEDS: FLUOXETINE HCL 10 MG CAPSULE PO SCH (09:20)
[2022-09-25] MEDS: CARVEDILOL 3.125 MG TABLET PO SCH ×2 (09:20→20:13)
[2022-09-25] MEDS: QUETIAPINE FUMARATE 25MG TABLET PO SCH ×2 (09:20→20:12)
[2022-09-25] MEDS: DOCUSATE SODIUM 100MG CAPSULE PO SCH ×2 (09:20→15:14)
[2022-09-25 16:00] VITALS: BP 128/48
[2022-09-25 20:00] VITALS: BP 112/70
[2022-09-25] MEDS: TRAZODONE HCL 50MG TABLET PO SCH (20:12)
[2022-09-25] MEDS: LORAZEPAM 1MG TABLET PO PRN (20:13)
[2022-09-26] MEDS: HYDROCODONE/ACETAMINOPHEN 5/325MG TABLET PO PRN ×2 (02:20→11:47)
[2022-09-26 08:00] VITALS: BP 118/56
[2022-09-26] MEDS ORDERED: BUPIVACAINE HCL/PF 0.5% (5MG/ML) 10ML ONE ×2 (08:48→14:46)
[2022-09-26] MEDS ORDERED: POLYMYXIN B SULFATE 500000 UNITS/VIAL ONE ×2 (08:48→14:51)
[2022-09-26] MEDS ORDERED: GENTAMICIN SULF 40MG/ML 2ML VIAL ONE (08:48)
[2022-09-26] MEDS ORDERED: BACITRACIN 15GM TUBE TOP ONE (08:48)
[2022-09-26] MEDS ORDERED: LIDOCAINE HCL 1% 20ML VIAL (Pyxis) INJ ONE (08:48)
[2022-09-26] MEDS: CARVEDILOL 3.125 MG TABLET PO SCH ×3 (09:00→21:03)
[2022-09-26] MEDS: FLUOXETINE HCL 10 MG CAPSULE PO SCH (09:00)
[2022-09-26] MEDS: DOCUSATE SODIUM 100MG CAPSULE PO SCH ×3 (09:00→18:13)
[2022-09-26] MEDS: QUETIAPINE FUMARATE 25MG TABLET PO SCH ×2 (09:00→21:04)
[2022-09-26] MEDS ORDERED: LIDOCAINE HCL 1% 10 MG/ML 10ML VIAL ONE ×2 (10:11→14:46)
[2022-09-26] MEDS ORDERED: CEFAZOLIN SODIUM 1000MG/VIAL ONE (10:41)
[2022-09-26 12:00] VITALS: BP 112/60
[2022-09-26] MEDS ORDERED: MIDAZOLAM HCL 2 MG/2 ML VIAL ONE ×2 (12:22→13:05)
[2022-09-26] MEDS: LORAZEPAM 1MG TABLET PO PRN ×2 (13:55→23:37)
[2022-09-26 16:00] VITALS: BP 120/68
[2022-09-26 20:00] VITALS: BP 112/37
[2022-09-26] MEDS: TRAZODONE HCL 50MG TABLET PO SCH (21:03)
[2022-09-27] VITALS: BP 108/52
[2022-09-27] MEDS: HYDROCODONE/ACETAMINOPHEN 5/325MG TABLET PO PRN ×2 (00:20→10:04)
[2022-09-27 04:00] VITALS: BP 110/63
[2022-09-27] MEDS: CARVEDILOL 3.125 MG TABLET PO SCH ×2 (08:39→20:43)
[2022-09-27] MEDS: DOCUSATE SODIUM 100MG CAPSULE PO SCH ×3 (08:39→16:34)
[2022-09-27] MEDS: FLUOXETINE HCL 10 MG CAPSULE PO SCH (08:39)
[2022-09-27] MEDS: QUETIAPINE FUMARATE 25MG TABLET PO SCH ×2 (08:39→20:41)
[2022-09-27] MEDS: LORAZEPAM 1MG TABLET PO PRN ×2 (10:03→20:33)
[2022-09-27 16:00] VITALS: BP 112/48
[2022-09-27 17:45] VITALS: BP 106/56
[2022-09-27 20:00] VITALS: BP 113/42
[2022-09-27] MEDS: TRAZODONE HCL 50MG TABLET PO SCH (21:00)
[2022-09-28] VITALS: BP 113/89
[2022-09-28 08:00] VITALS: BP 120/65
[2022-09-28] MEDS: CARVEDILOL 3.125 MG TABLET PO SCH ×2 (09:44→21:55)
[2022-09-28] MEDS: LORAZEPAM 1MG TABLET PO PRN ×2 (09:44→17:29)
[2022-09-28] MEDS: FLUOXETINE HCL 10 MG CAPSULE PO SCH (09:44)
[2022-09-28] MEDS: DOCUSATE SODIUM 100MG CAPSULE PO SCH ×3 (09:44→17:29)
[2022-09-28] MEDS: QUETIAPINE FUMARATE 25MG TABLET PO SCH ×2 (09:44→21:55)
[2022-09-28] MEDS ORDERED: HALOPERIDOL LACTATE 5MG/ML VIAL IM NR (11:45)
[2022-09-28 16:00] VITALS: BP 141/67
[2022-09-28] MEDS: HALOPERIDOL LACTATE 5MG/ML VIAL IM PRN (19:12)
[2022-09-28 20:00] VITALS: BP 115/83
[2022-09-28] MEDS: TRAZODONE HCL 50MG TABLET PO SCH (21:54)
[2022-09-29] VITALS: BP 125/63
[2022-09-29 04:00] VITALS: BP 132/70
[2022-09-29] MEDS: LORAZEPAM 1MG TABLET PO PRN ×2 (05:46→20:40)
[2022-09-29] MEDS: ACETAMINOPHEN 325MG TABLET PO PRN (05:46)
[2022-09-29] MEDS: FLUOXETINE HCL 10 MG CAPSULE PO SCH (09:00)
[2022-09-29] MEDS: QUETIAPINE FUMARATE 25MG TABLET PO SCH ×2 (09:00→20:40)
[2022-09-29] MEDS: CARVEDILOL 3.125 MG TABLET PO SCH ×2 (09:00→20:40)
[2022-09-29] MEDS: DOCUSATE SODIUM 100MG CAPSULE PO SCH ×3 (09:00→17:00)
[2022-09-29 12:00] VITALS: BP 116/69
[2022-09-29 16:00] VITALS: BP 120/63
[2022-09-29] MEDS: TRAZODONE HCL 50MG TABLET PO SCH (20:40)
[2022-09-29] MEDS: HALOPERIDOL LACTATE 5MG/ML VIAL IM PRN (21:01)
[2022-09-30] MEDS: ACETAMINOPHEN 325MG TABLET PO PRN (03:58)
[2022-09-30] MEDS: LORAZEPAM 1MG TABLET PO PRN (04:47)
[2022-09-30] MEDS: HALOPERIDOL LACTATE 5MG/ML VIAL IM PRN ×2 (05:04→16:45)
[2022-09-30 08:00] VITALS: BP 154/90
[2022-09-30] MEDS: FLUOXETINE HCL 10 MG CAPSULE PO SCH (09:00)
[2022-09-30] MEDS: QUETIAPINE FUMARATE 25MG TABLET PO SCH (10:30)
[2022-09-30] MEDS: DOCUSATE SODIUM 100MG CAPSULE PO SCH ×3 (10:30→16:49)
[2022-09-30] MEDS: CARVEDILOL 3.125 MG TABLET PO SCH ×2 (10:31→22:12)
[2022-09-30] MEDS ORDERED: NALOXONE HCL 0.4MG/ML VIAL IV PRN (11:00)
[2022-09-30 12:00] VITALS: BP 107/45
[2022-09-30] MEDS: HYDROCODONE/ACETAMINOPHEN 5/325MG TABLET PO PRN ×2 (12:02→16:46)
[2022-09-30 16:00] VITALS: BP 121/84
[2022-09-30 20:00] VITALS: BP 123/55
[2022-09-30] MEDS: TRAZODONE HCL 50MG TABLET PO SCH (22:12)
[2022-09-30] MEDS: QUETIAPINE FUMARATE 50MG TABLET PO SCH (22:12)
[2022-10-01] MEDS: LORAZEPAM 1MG TABLET PO PRN (04:09)
[2022-10-01] MEDS: ACETAMINOPHEN 325MG TABLET PO PRN (04:09)
[2022-10-01 07:56] VITALS: BP 114/66
[2022-10-01] MEDS: CARVEDILOL 3.125 MG TABLET PO SCH ×2 (09:19→20:43)
[2022-10-01] MEDS: DOCUSATE SODIUM 100MG CAPSULE PO SCH ×3 (09:19→18:02)
[2022-10-01] MEDS: FLUOXETINE HCL 20MG CAPSULE PO SCH (09:19)
[2022-10-01] MEDS: QUETIAPINE FUMARATE 50MG TABLET PO SCH ×2 (09:19→20:43)
[2022-10-01 12:00] VITALS: BP 94/54
[2022-10-01 16:00] VITALS: BP 110/50
[2022-10-01 20:00] VITALS: BP 122/60
[2022-10-01] MEDS: TRAZODONE HCL 50MG TABLET PO SCH (20:43)
[2022-10-01 21:59] LABS: CHLORIDE 117 mEq/L (98-107)
[2022-10-02] VITALS: BP 130/66
[2022-10-02 04:00] VITALS: BP 118/73
[2022-10-02 08:00] VITALS: BP 119/56
[2022-10-02] MEDS: FLUOXETINE HCL 20MG CAPSULE PO SCH (08:21)
[2022-10-02] MEDS: DOCUSATE SODIUM 100MG CAPSULE PO SCH ×3 (08:21→15:57)
[2022-10-02] MEDS: QUETIAPINE FUMARATE 50MG TABLET PO SCH ×2 (08:21→21:00)
[2022-10-02] MEDS: CARVEDILOL 3.125 MG TABLET PO SCH ×2 (08:24→21:00)
[2022-10-02] MEDS: LORAZEPAM 1MG TABLET PO PRN (15:57)
[2022-10-02 16:00] VITALS: BP 118/62
[2022-10-02 20:00] VITALS: BP 120/61
[2022-10-02] MEDS: TRAZODONE HCL 50MG TABLET PO SCH (21:00)
[2022-10-03] VITALS: BP 120/62
[2022-10-03 08:00] VITALS: BP 109/45
[2022-10-03] MEDS: ENOXAPARIN 40MG/0.4ML SYR SUBCUT SCH (09:00)
[2022-10-03] MEDS: FLUOXETINE HCL 20MG CAPSULE PO SCH (09:00)
[2022-10-03] MEDS: DOCUSATE SODIUM 100MG CAPSULE PO SCH ×3 (09:00→18:29)
[2022-10-03] MEDS: CARVEDILOL 3.125 MG TABLET PO SCH ×2 (09:00→21:00)
[2022-10-03] MEDS: HYDROCODONE/ACETAMINOPHEN 5/325MG TABLET PO PRN ×3 (09:00→22:13)
[2022-10-03 12:00] VITALS: BP 102/41
[2022-10-03 16:00] VITALS: BP 124/47
[2022-10-03 16:47] LABS: EOSINOPHILS % 5.9 % (0.0-5.0); HEMATOCRIT. 35.6 % (36.0-48.0); HEMOGLOBIN. 11.1 g/dL (12.0-16.0); LYMPHOCYTES % 26.9 % (20.0-50.0); MEAN CORPUSCULAR VOLUME 77.1 fL (81.0-99.0); MEAN PLATELET VOLUME 7.4 fl (7.4-10.4); NEUTROPHILS % 52.2 % (40.0-76.0); PLATELET 282 x1000/uL (130-400); RED BLOOD CELL COUNT 4.61 mill/uL (4.2-5.4); RED CELL DISTRIBUTION WIDTH 24.5 % (11.6-14.6)
[2022-10-03 16:59] LABS: CHLORIDE 121 mEq/L (98-107)
[2022-10-03 17:36] LABS: FOLIC ACID (FOLATE) SERUM > 20.00 ng/mL (>5.38); VITAMIN B12 SERUM > 2000.0 pg/mL (211-911)
[2022-10-03 20:00] VITALS: BP 110/50
[2022-10-03] MEDS: QUETIAPINE FUMARATE 25MG TABLET PO SCH (22:12)
[2022-10-03] MEDS: TRAZODONE HCL 50MG TABLET PO SCH (22:12)
[2022-10-04] VITALS: BP 118/66
[2022-10-04 01:11] LABS: HEPATITIS B SURFACE ANTIGEN NEGATIVE
[2022-10-04 04:00] VITALS: BP_SYST 110; BP_SYST 116; BP_DIAS 57; BP_DIAS 60
[2022-10-04 06:34] LABS: HEMATOCRIT. 35.2 % (36.0-48.0); HEMOGLOBIN. 11.2 g/dL (12.0-16.0); MEAN CORPUSCULAR HEMOGLOBIN 24.2 pg (28.0-32.0); MEAN CORPUSCULAR VOLUME 76.2 fL (81.0-99.0); MEAN PLATELET VOLUME 8.6 fl (7.4-10.4); PLATELET 250 x1000/uL (130-400); RED BLOOD CELL COUNT 4.62 mill/uL (4.2-5.4); RED CELL DISTRIBUTION WIDTH 24.2 % (11.6-14.6)
[2022-10-04] MEDS: HYDROCODONE/ACETAMINOPHEN 5/325MG TABLET PO PRN ×4 (06:50→20:23)
[2022-10-04 08:00] VITALS: BP 111/43
[2022-10-04 08:25] LABS: CHLORIDE 121 mEq/L (98-107)
[2022-10-04] MEDS: CARVEDILOL 3.125 MG TABLET PO SCH ×2 (09:00→20:21)
[2022-10-04] MEDS: DOCUSATE SODIUM 100MG CAPSULE PO SCH ×3 (09:40→17:00)
[2022-10-04] MEDS: FLUOXETINE HCL 20MG CAPSULE PO SCH (09:40)
[2022-10-04] MEDS: QUETIAPINE FUMARATE 25MG TABLET PO SCH ×2 (09:40→20:20)
[2022-10-04] MEDS: ENOXAPARIN 40MG/0.4ML SYR SUBCUT SCH (09:40)
[2022-10-04 12:00] VITALS: BP 98/45
[2022-10-04] MEDS ORDERED: DEXT 5%/0.45% NACL 1000ML 1,000 ML IV SCH (14:30)
[2022-10-04 16:00] VITALS: BP 102/58
[2022-10-04 20:00] VITALS: BP 130/59
[2022-10-04] MEDS: TRAZODONE HCL 50MG TABLET PO SCH (20:21)
[2022-10-05] VITALS: BP 122/80
[2022-10-05] MEDS: HYDROCODONE/ACETAMINOPHEN 5/325MG TABLET PO PRN ×4 (02:18→21:13)
[2022-10-05 02:42] LABS: PLATELET ESTIMATE NORMAL
[2022-10-05] MEDS: DEXTROSE 5% WATER 1,000 ML IV SCH ×2 (03:29→19:40)
[2022-10-05 04:00] VITALS: BP 126/66
[2022-10-05 07:28] VITALS: BP 109/60
[2022-10-05] MEDS: DOCUSATE SODIUM 100MG CAPSULE PO SCH ×3 (08:40→16:48)
[2022-10-05] MEDS: QUETIAPINE FUMARATE 25MG TABLET PO SCH ×2 (08:40→21:13)
[2022-10-05] MEDS: FLUOXETINE HCL 20MG CAPSULE PO SCH (08:40)
[2022-10-05] MEDS: ENOXAPARIN 40MG/0.4ML SYR SUBCUT SCH (08:42)
[2022-10-05] MEDS: CARVEDILOL 3.125 MG TABLET PO SCH ×2 (08:46→20:57)
[2022-10-05 10:25] LABS: CHLORIDE 110 mEq/L (98-107)
[2022-10-05 10:38] LABS: CHLORIDE 113 mEq/L (98-107)
[2022-10-05] MEDS ORDERED: IPRATROPIUM/ALBUTEROL 0.5-3(2.5)MG/3ML NEB HHN PRN (11:45)
[2022-10-05 12:00] VITALS: BP 110/62
[2022-10-05 16:00] VITALS: BP 108/60
[2022-10-05] MEDS ORDERED: NALOXONE HCL 0.4MG/ML VIAL IV PRN (16:45)
[2022-10-05] MEDS: ALBUTEROL (0.083%) 2.5MG/3ML NEB HHN PRN (17:34)
[2022-10-05] MEDS: IPRATROPIUM BROMIDE (0.02%) 0.5MG/2.5ML NEB HHN PRN (17:34)
[2022-10-05] MEDS: TRAZODONE HCL 50MG TABLET PO SCH (21:12)
[2022-10-06] MEDS: HYDROCODONE/ACETAMINOPHEN 5/325MG TABLET PO PRN ×4 (01:07→17:42)
[2022-10-06] MEDS: ACETAMINOPHEN 325MG TABLET PO PRN (06:34)
[2022-10-06 07:31] LABS: HEMATOCRIT. 35.1 % (36.0-48.0); MEAN CORPUSCULAR HEMOGLOBIN 24.1 pg (28.0-32.0); MEAN CORPUSCULAR VOLUME 76.8 fL (81.0-99.0); MEAN PLATELET VOLUME 7.6 fl (7.4-10.4); PLATELET 208 x1000/uL (130-400); RED BLOOD CELL COUNT 4.56 mill/uL (4.2-5.4); RED CELL DISTRIBUTION WIDTH 24.3 % (11.6-14.6)
[2022-10-06 08:00] VITALS: BP 103/64
[2022-10-06 08:19] LABS: CHLORIDE 110 mEq/L (98-107)
[2022-10-06] MEDS: FLUOXETINE HCL 20MG CAPSULE PO SCH (08:19)
[2022-10-06] MEDS: DOCUSATE SODIUM 100MG CAPSULE PO SCH ×3 (08:19→17:41)
[2022-10-06] MEDS: QUETIAPINE FUMARATE 25MG TABLET PO SCH ×2 (08:20→20:07)
[2022-10-06] MEDS: ENOXAPARIN 40MG/0.4ML SYR SUBCUT SCH (08:21)
[2022-10-06] MEDS: CARVEDILOL 3.125 MG TABLET PO SCH ×2 (09:00→20:09)
[2022-10-06] MEDS: DEXTROSE 5% WATER 1,000 ML IV SCH (12:20)
[2022-10-06 12:53] LABS: PLATELET ESTIMATE NORMAL
[2022-10-06 17:00] VITALS: BP 105/60
[2022-10-06 20:00] VITALS: BP 110/51
[2022-10-06] MEDS: TRAZODONE HCL 50MG TABLET PO SCH (20:06)
[2022-10-07] MEDS: HYDROCODONE/ACETAMINOPHEN 5/325MG TABLET PO PRN ×5 (00:22→17:41)
[2022-10-07] MEDS: ALBUTEROL (0.083%) 2.5MG/3ML NEB HHN PRN ×4 (03:10→13:06)
[2022-10-07] MEDS: IPRATROPIUM BROMIDE (0.02%) 0.5MG/2.5ML NEB HHN PRN ×4 (03:11→13:06)
[2022-10-07 04:00] VITALS: BP 115/77
[2022-10-07] MEDS: DEXTROSE 5% WATER 1,000 ML IV SCH (05:00)
[2022-10-07 08:00] VITALS: BP 130/66
[2022-10-07] MEDS: FLUOXETINE HCL 20MG CAPSULE PO SCH (08:00)
[2022-10-07] MEDS: DOCUSATE SODIUM 100MG CAPSULE PO SCH ×3 (08:00→17:41)
[2022-10-07] MEDS: CARVEDILOL 3.125 MG TABLET PO SCH ×2 (08:01→20:45)
[2022-10-07] MEDS: QUETIAPINE FUMARATE 25MG TABLET PO SCH ×2 (08:01→21:43)
[2022-10-07] MEDS: ENOXAPARIN 40MG/0.4ML SYR SUBCUT SCH (08:02)
[2022-10-07 12:00] VITALS: BP 103/58
[2022-10-07 16:00] VITALS: BP 101/57
[2022-10-07 20:00] VITALS: BP 108/51
[2022-10-07] MEDS: TRAZODONE HCL 50MG TABLET PO SCH (21:42)
[2022-10-08] VITALS: BP 103/50
[2022-10-08 04:00] VITALS: BP 103/44
[2022-10-08 04:10] LABS: HIV SCREEN 4G Non Reactive (Non Reactive)
[2022-10-08] MEDS: HYDROCODONE/ACETAMINOPHEN 5/325MG TABLET PO PRN ×4 (06:51→21:01)
[2022-10-08 08:00] VITALS: BP 90/39
[2022-10-08] MEDS: IPRATROPIUM BROMIDE (0.02%) 0.5MG/2.5ML NEB HHN PRN ×3 (09:01→23:06)
[2022-10-08] MEDS: ALBUTEROL (0.083%) 2.5MG/3ML NEB HHN PRN ×3 (09:02→23:06)
[2022-10-08] MEDS: ENOXAPARIN 40MG/0.4ML SYR SUBCUT SCH (10:05)
[2022-10-08] MEDS: DOCUSATE SODIUM 100MG CAPSULE PO SCH ×3 (10:06→17:00)
[2022-10-08] MEDS: FLUOXETINE HCL 20MG CAPSULE PO SCH (10:07)
[2022-10-08] MEDS: CARVEDILOL 3.125 MG TABLET PO SCH ×2 (10:24→21:00)
[2022-10-08] MEDS: QUETIAPINE FUMARATE 25MG TABLET PO SCH ×2 (10:25→21:01)
[2022-10-08 12:00] VITALS: BP 106/43
[2022-10-08] MEDS ORDERED: FLUO20CA39 PO (14:45)
[2022-10-08] MEDS ORDERED: COR3 PO (14:45)
[2022-10-08] MEDS ORDERED: FURO-151 MT (14:45)
[2022-10-08] MEDS ORDERED: FLUT1DIS3 INH (14:45)
[2022-10-08] MEDS ORDERED: LISI2.5T47 PO (14:45)
[2022-10-08] MEDS ORDERED: QUET50TA PO (14:45)
[2022-10-08] MEDS ORDERED: ALBU18HF2 IH (14:45)
[2022-10-08 16:00] VITALS: BP 126/42
[2022-10-08 20:00] VITALS: BP 106/60
[2022-10-08] MEDS: TRAZODONE HCL 50MG TABLET PO SCH (21:01)
[2022-10-09] VITALS: BP 112/60
[2022-10-09] MEDS: IPRATROPIUM BROMIDE (0.02%) 0.5MG/2.5ML NEB HHN PRN ×2 (03:07→10:12)
[2022-10-09] MEDS: ALBUTEROL (0.083%) 2.5MG/3ML NEB HHN PRN ×2 (03:08→10:13)
[2022-10-09] MEDS: HYDROCODONE/ACETAMINOPHEN 5/325MG TABLET PO PRN ×2 (03:35→09:05)
[2022-10-09 03:40] VITALS: BP 110/62
[2022-10-09 08:00] VITALS: BP 117/63
[2022-10-09] MEDS: DOCUSATE SODIUM 100MG CAPSULE PO SCH ×3 (08:39→17:13)
[2022-10-09] MEDS: ENOXAPARIN 40MG/0.4ML SYR SUBCUT SCH (08:39)
[2022-10-09] MEDS: FLUOXETINE HCL 20MG CAPSULE PO SCH (08:39)
[2022-10-09] MEDS: CARVEDILOL 3.125 MG TABLET PO SCH ×2 (08:40→22:15)
[2022-10-09] MEDS: QUETIAPINE FUMARATE 25MG TABLET PO SCH ×2 (08:41→22:17)
[2022-10-09 08:56] LABS: CHLORIDE 106 mEq/L (98-107)
[2022-10-09 12:00] VITALS: BP 119/60
[2022-10-09] MEDS: TRAMADOL 50MG TABLET PO PRN (13:14)
[2022-10-09] MEDS ORDERED: SODIUM POLYSTYRENE SULFONATE 15 G/60 ML BOT PO SCH (15:00)
[2022-10-09 16:00] VITALS: BP 113/62
[2022-10-09 20:00] VITALS: BP 105/41
[2022-10-09] MEDS: TRAZODONE HCL 50MG TABLET PO SCH (22:14)
[2022-10-10] VITALS: BP 96/48
[2022-10-10] MEDS: HYDROCODONE/ACETAMINOPHEN 5/325MG TABLET PO PRN ×2 (03:08→14:00)
[2022-10-10 08:00] VITALS: BP 134/53
[2022-10-10] MEDS: ENOXAPARIN 40MG/0.4ML SYR SUBCUT SCH (08:48)
[2022-10-10] MEDS: QUETIAPINE FUMARATE 25MG TABLET PO SCH ×2 (08:48→21:10)
[2022-10-10] MEDS: FLUOXETINE HCL 20MG CAPSULE PO SCH (08:48)
[2022-10-10] MEDS: DOCUSATE SODIUM 100MG CAPSULE PO SCH ×3 (08:48→17:12)
[2022-10-10] MEDS: CARVEDILOL 3.125 MG TABLET PO SCH ×2 (08:49→21:00)
[2022-10-10 12:00] VITALS: BP 100/55
[2022-10-10 16:00] VITALS: BP 106/58
[2022-10-10] MEDS ORDERED: NALOXONE HCL 0.4MG/ML VIAL IV PRN (17:30)
[2022-10-10 20:00] VITALS: BP 104/56
[2022-10-10 20:50] LABS: CHLORIDE 107 mEq/L (98-107)
[2022-10-10] MEDS: TRAMADOL 50MG TABLET PO PRN (21:10)
[2022-10-10] MEDS: TRAZODONE HCL 50MG TABLET PO SCH (21:10)
[2022-10-11] VITALS: BP 109/63
[2022-10-11 04:00] VITALS: BP 112/61
[2022-10-11] MEDS: TRAMADOL 50MG TABLET PO PRN ×2 (05:15→10:54)
[2022-10-11 07:47] VITALS: BP 119/66
[2022-10-11] MEDS: DOCUSATE SODIUM 100MG CAPSULE PO SCH (09:00)
[2022-10-11] MEDS: QUETIAPINE FUMARATE 25MG TABLET PO SCH (09:25)
[2022-10-11] MEDS: FLUOXETINE HCL 20MG CAPSULE PO SCH (09:25)
[2022-10-11] MEDS: CARVEDILOL 3.125 MG TABLET PO SCH (09:25)
[2022-10-11] MEDS: ENOXAPARIN 40MG/0.4ML SYR SUBCUT SCH (09:30)
[2022-10-11 11:56] VITALS: BP 101/54
== END 2022-10-11 14:38 | disposition home or self-care (01) | DRG 197 ==
LOC: ER 22:04 → 7WST 09-20 05:19 → EDBEDREQ 09-20 05:48 → 7WST 09-21 03:53 → 6EST 09-22 23:52 → 5WST 09-27 17:35
PROVIDERS: ADMIT Internal Medicine; ATTEND Internal Medicine
PROC: 02HV33Z Insertion of Infusion Device into Superior Vena Cava, Percutaneous Approach (ICD-10-PCS; principal; 2022-09-26)
PROC: B548ZZA Ultrasonography of Superior Vena Cava, Guidance (ICD-10-PCS; 2022-09-26)
PROC: B5181ZA Fluoroscopy of Superior Vena Cava using Low Osmolar Contrast, Guidance (ICD-10-PCS; 2022-09-26)
DX: E11.52 Type 2 diabetes mellitus with diabetic peripheral angiopathy with gangrene (principal); I50.23 Acute on chronic systolic (congestive) heart failure; G92.8 Other toxic encephalopathy; E11.649 Type 2 diabetes mellitus with hypoglycemia without coma; E87.0 Hyperosmolality and hypernatremia; E44.1 Mild protein-calorie malnutrition; I96 Gangrene, not elsewhere classified; I13.0 Hypertensive heart and chronic kidney disease with heart failure and stage 1 through stage 4 chronic kidney disease, or unspecified chronic kidney disease; I44.1 Atrioventricular block, second degree; I27.20 Pulmonary hypertension, unspecified; N17.9 Acute kidney failure, unspecified; E11.621 Type 2 diabetes mellitus with foot ulcer; D64.9 Anemia, unspecified; L97.529 Non-pressure chronic ulcer of other part of left foot with unspecified severity; I42.9 Cardiomyopathy, unspecified; E87.6 Hypokalemia; J44.9 Chronic obstructive pulmonary disease, unspecified; F17.210 Nicotine dependence, cigarettes, uncomplicated; F19.10 Other psychoactive substance abuse, uncomplicated; I34.0 Nonrheumatic mitral (valve) insufficiency; E87.5 Hyperkalemia; F32.9 Major depressive disorder, single episode, unspecified; E11.22 Type 2 diabetes mellitus with diabetic chronic kidney disease; Z60.2 Problems related to living alone; Z20.822 Contact with and (suspected) exposure to COVID-19; E86.1 Hypovolemia; F29 Unspecified psychosis not due to a substance or known physiological condition; N18.9 Chronic kidney disease, unspecified; Z79.4 Long term (current) use of insulin; Z79.51 Long term (current) use of inhaled steroids; Z79.899 Other long term (current) drug therapy; Z91.199 Patient's noncompliance with other medical treatment and regimen due to unspecified reason; Z68.23 Body mass index [BMI] 23.0-23.9, adult; Z79.84 Long term (current) use of oral hypoglycemic drugs; Z71.41 Alcohol abuse counseling and surveillance of alcoholic
CPT/HCPCS: 36415; 36573; 36600; 71045; 73630; 80048; 80053; 80305; 82140; 82375; 82607; 82746; 82805; 82962; 83036; 84425; 84443; 84484; 85018; 85025; 86705; 86709; 86803; 87340; 87389; 87426; 93005; 93306; 93923; 94640; 97116; 97162; 97530; 99285; C1725; C1760; C1893; J0690; J1580; J1630; J1650; J1885; J2060; J2250; J2405; J2704; J3010; J3490; J7070

== ENCOUNTER 2022-10-27 18:52 | Emergency (ER) | payer MEDICAID, OTHER ==
[~2022-10-27] VITALS: Ht 162.6 cm; Wt 75.0 kg
[~2022-10-27 18:52] MED LIST changes: -CEPH500C2 MT; +FLUO20CA39 PO; +FLUOX10 PO; -FURO40TA5 MT; +HYDR-4001 MT; -HYDR-4001 PO; -NAPR-677 MT; -P20 MT; -[UNRECOGNIZED DRUG - CODE] TOP
[2022-10-27 20:17] LABS: BASOPHILS % 1.9 % (0.0-2.0); EOSINOPHILS % 1.5 % (0.0-5.0); HEMATOCRIT. 29.8 % (36.0-48.0); HEMOGLOBIN. 9.3 g/dL (12.0-16.0); LYMPHOCYTES % 17.3 % (20.0-50.0); MEAN CORPUSCULAR HEMOGLOBIN 23.5 pg (28.0-32.0); MEAN CORPUSCULAR VOLUME 75.3 fL (81.0-99.0); MEAN PLATELET VOLUME 7.2 fl (7.4-10.4); MONOCYTES % 11.7 % (2.0-8.0); NEUTROPHILS % 67.6 % (40.0-76.0); PLATELET 261 x1000/uL (130-400); RED BLOOD CELL COUNT 3.95 mill/uL (4.2-5.4); RED CELL DISTRIBUTION WIDTH 22.1 % (11.6-14.6)
[2022-10-27 20:22] LABS: CHLORIDE 112 mEq/L (98-107)
[2022-10-27 21:13] LABS: PLATELET ESTIMATE NORMAL
[2022-10-28] MEDS ORDERED: OXYC-100 PO (01:28)
[2022-10-28] MEDS ORDERED: FURO-151 PO (01:28)
[2022-10-28] MEDS ORDERED: FUROSEMIDE 40MG TABLET PO ONE (01:30)
[2022-10-28] MEDS ORDERED: OXYCODONE HCL/ACETAMINOPHEN 5/325MG TABLET PO ONE (01:30)
[2022-10-28 02:00] VITALS: BP 128/71
== END 2022-10-28 08:15 | disposition home or self-care (01) ==
LOC: ER 18:52
DX: M79.671 Pain in right foot (principal); I50.9 Heart failure, unspecified; J44.9 Chronic obstructive pulmonary disease, unspecified; E11.9 Type 2 diabetes mellitus without complications; F20.9 Schizophrenia, unspecified; Z79.899 Other long term (current) drug therapy
CPT/HCPCS: 36415; 71045; 80053; 83880; 85025; 93005; 99285; Z7610